=== PATIENT | female | born 1950 | race Caucasian/White ===

== ENCOUNTER 2019-04-26 11:06 | Outpatient (CLI) | payer MEDICARE, OTHER, SELFPAY ==
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
== END 2019-04-26 11:07 | disposition home or self-care (01) ==
LOC: RADOUTREAD 13:15
PROVIDERS: Family Provider Family Medicine; PCP Family Medicine; Visit Provider Internal Medicine
DX: Z76.89 Persons encountering health services in other specified circumstances (principal)

== ENCOUNTER → 2019-05-18 08:58 | Outpatient (BNVA) | payer MEDICARE, OTHER, SELFPAY | PROVIDERS: Family Provider Family Medicine; PCP Family Medicine; Visit Provider Specialist | DX: S92.912A Unspecified fracture of left toe(s), initial encounter for closed fracture (principal); X58.XXXA Exposure to other specified factors, initial encounter | CPT/HCPCS: 73660 ==

== ENCOUNTER 2020-11-02 12:21 | Outpatient (RCR) | payer MEDICARE, OTHER, SELFPAY | END 2020-11-20 23:59 | disposition home or self-care (01) | LOC: SPT 12:21 | PROVIDERS: PCP Family Medicine; Visit Provider Family Medicine | DX: S39.012D Strain of muscle, fascia and tendon of lower back, subsequent encounter (principal); X58.XXXD Exposure to other specified factors, subsequent encounter | CPT/HCPCS: 97032; 97110; 97161 ==

== ENCOUNTER 2020-12-14 15:55 | Outpatient (RCR) | payer MEDICARE, OTHER, SELFPAY | END 2020-12-20 23:59 | disposition home or self-care (01) | LOC: SPT 15:55 | PROVIDERS: PCP Family Medicine; Visit Provider Family Medicine | DX: S39.012D Strain of muscle, fascia and tendon of lower back, subsequent encounter (principal); X58.XXXD Exposure to other specified factors, subsequent encounter | CPT/HCPCS: 97110 ==

== ENCOUNTER 2020-12-21 06:00 | Outpatient (RCR) | payer MEDICARE, OTHER, SELFPAY | END 2021-01-20 23:59 | disposition home or self-care (01) | LOC: SPT 06:00 | PROVIDERS: PCP Family Medicine; Visit Provider Family Medicine | DX: S39.012D Strain of muscle, fascia and tendon of lower back, subsequent encounter (principal); X58.XXXD Exposure to other specified factors, subsequent encounter | CPT/HCPCS: 97110 ==

== ENCOUNTER → 2021-01-23 09:30 | Outpatient (BNVA) | payer MEDICARE, OTHER, SELFPAY | PROVIDERS: PCP Family Medicine; Referring Provider Internal Medicine Cardiovascular Disease; Visit Provider Anesthesiology Pain Medicine | DX: M47.816 Spondylosis without myelopathy or radiculopathy, lumbar region (principal); M51.36 Other intervertebral disc degeneration, lumbar region; M46.96 Unspecified inflammatory spondylopathy, lumbar region; M25.552 Pain in left hip; Z79.891 Long term (current) use of opiate analgesic; Z87.891 Personal history of nicotine dependence | CPT/HCPCS: 99204 ==

== ENCOUNTER 2021-10-08 12:25 | Outpatient (CLI) | payer MEDICARE, OTHER, SELFPAY ==
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
== END 2021-10-08 12:26 | disposition home or self-care (01) ==
PROVIDERS: PCP Family Medicine; Visit Provider Family Medicine
DX: Z78.0 Asymptomatic menopausal state (principal); M85.88 Other specified disorders of bone density and structure, other site
CPT/HCPCS: 77080

== ENCOUNTER → 2022-01-28 09:21 | Outpatient (BNVA) | payer MEDICARE, OTHER, SELFPAY | PROVIDERS: PCP Family Medicine; Visit Provider Anesthesiology Pain Medicine | DX: M47.816 Spondylosis without myelopathy or radiculopathy, lumbar region (principal); M51.36 Other intervertebral disc degeneration, lumbar region; M25.552 Pain in left hip; Z87.891 Personal history of nicotine dependence | CPT/HCPCS: 99214 ==

== ENCOUNTER → 2022-01-30 08:45 | Outpatient (BNVA) | payer MEDICARE, OTHER, SELFPAY | PROVIDERS: PCP Family Medicine; Visit Provider Podiatrist Foot & Ankle Surgery | DX: Q82.8 Other specified congenital malformations of skin (principal); M79.672 Pain in left foot; M79.671 Pain in right foot | CPT/HCPCS: 17110; 99204 ==

== ENCOUNTER → 2022-02-04 13:52 | Outpatient (BNVA) | payer MEDICARE, OTHER, SELFPAY | PROVIDERS: PCP Family Medicine; Visit Provider Anesthesiology Pain Medicine | DX: M54.16 Radiculopathy, lumbar region (principal); Z87.891 Personal history of nicotine dependence | CPT/HCPCS: 64483; 64484; J1100; J3490 ==

== ENCOUNTER → 2022-02-10 13:46 | Outpatient (BNVA) | payer MEDICARE, OTHER, SELFPAY | PROVIDERS: PCP Family Medicine; Visit Provider Podiatrist Foot & Ankle Surgery | DX: Q82.8 Other specified congenital malformations of skin (principal) | CPT/HCPCS: 17110; 99213 ==

== ENCOUNTER → 2022-02-25 13:58 | Outpatient (BNVA) | payer MEDICARE, OTHER, SELFPAY | PROVIDERS: PCP Family Medicine; Visit Provider Anesthesiology Pain Medicine | DX: M54.16 Radiculopathy, lumbar region (principal) | CPT/HCPCS: 64483; 64484 ==

== ENCOUNTER → 2022-03-31 10:53 | Outpatient (BNVA) | payer MEDICARE, OTHER, SELFPAY | PROVIDERS: PCP Family Medicine; Visit Provider Anesthesiology Pain Medicine | DX: M47.816 Spondylosis without myelopathy or radiculopathy, lumbar region (principal); M51.36 Other intervertebral disc degeneration, lumbar region | CPT/HCPCS: 99214 ==

== ENCOUNTER → 2022-06-30 09:17 | Outpatient (BNVA) | payer MEDICARE, OTHER, SELFPAY | PROVIDERS: PCP Family Medicine; Visit Provider Anesthesiology Pain Medicine | DX: M47.816 Spondylosis without myelopathy or radiculopathy, lumbar region (principal); M51.36 Other intervertebral disc degeneration, lumbar region; M25.552 Pain in left hip | CPT/HCPCS: 99213 ==

== ENCOUNTER → 2023-01-06 09:52 | Outpatient (BNVA) | payer MEDICARE, OTHER, SELFPAY | PROVIDERS: PCP Family Medicine; Visit Provider Anesthesiology Pain Medicine | DX: M47.816 Spondylosis without myelopathy or radiculopathy, lumbar region; M51.36 Other intervertebral disc degeneration, lumbar region | CPT/HCPCS: 99213 ==

== ENCOUNTER 2023-04-07 10:31 | Outpatient (RCR) | payer MEDICARE, OTHER, SELFPAY | END 2023-04-22 23:59 | disposition home or self-care (01) | LOC: SPT 10:31 | PROVIDERS: PCP Family Medicine; Visit Provider Student in an Organized Health Care Education/Training Program | DX: M17.11 Unilateral primary osteoarthritis, right knee (principal) | CPT/HCPCS: 97110; 97161 ==

== ENCOUNTER 2023-04-23 06:00 | Outpatient (RCR) | payer MEDICARE, OTHER, SELFPAY | END 2023-05-21 23:59 | disposition home or self-care (01) | LOC: SPT 06:00 | PROVIDERS: PCP Family Medicine; Visit Provider Student in an Organized Health Care Education/Training Program | DX: M17.11 Unilateral primary osteoarthritis, right knee (principal) | CPT/HCPCS: 97110 ==

== ENCOUNTER → 2023-07-08 09:58 | Outpatient (BNVA) | payer MEDICARE, OTHER, SELFPAY | PROVIDERS: PCP Family Medicine; Visit Provider Anesthesiology Pain Medicine | DX: M47.816 Spondylosis without myelopathy or radiculopathy, lumbar region; M51.36 Other intervertebral disc degeneration, lumbar region | CPT/HCPCS: 99214 ==

== ENCOUNTER → 2023-07-15 13:20 | Outpatient (BNVA) | payer MEDICARE, OTHER, SELFPAY | PROVIDERS: PCP Family Medicine; Visit Provider Anesthesiology Pain Medicine | DX: M54.16 Radiculopathy, lumbar region (principal) | CPT/HCPCS: 64483; 64484; J1100; J3490 ==

== ENCOUNTER → 2023-08-19 09:31 | Outpatient (BNVA) | payer MEDICARE, OTHER, SELFPAY | PROVIDERS: PCP Family Medicine; Visit Provider Anesthesiology Pain Medicine | DX: M47.816 Spondylosis without myelopathy or radiculopathy, lumbar region; M51.36 Other intervertebral disc degeneration, lumbar region; M25.552 Pain in left hip | CPT/HCPCS: 99214 ==

== ENCOUNTER → 2023-08-27 13:28 | Outpatient (BNVA) | payer MEDICARE, OTHER, SELFPAY | PROVIDERS: PCP Family Medicine; Visit Provider Anesthesiology Pain Medicine | DX: M54.16 Radiculopathy, lumbar region (principal) | CPT/HCPCS: 64483; 64484; J1100; J3490 ==

== ENCOUNTER → 2023-09-09 09:49 | Outpatient (BNVA) | payer MEDICARE, OTHER, SELFPAY | PROVIDERS: PCP Family Medicine; Visit Provider Anesthesiology Pain Medicine | DX: M47.816 Spondylosis without myelopathy or radiculopathy, lumbar region; M51.36 Other intervertebral disc degeneration, lumbar region; M25.552 Pain in left hip | CPT/HCPCS: 99214 ==

== ENCOUNTER → 2024-09-21 09:22 | Outpatient (BNVA) | payer MEDICARE, OTHER, SELFPAY | PROVIDERS: PCP Family Medicine; Visit Provider Podiatrist Foot & Ankle Surgery | DX: M79.671 Pain in right foot (principal); Q82.8 Other specified congenital malformations of skin; M20.11 Hallux valgus (acquired), right foot | CPT/HCPCS: 17110; 73630; 99214 ==

== ENCOUNTER 2024-10-29 22:52 | Inpatient (IN) | payer MEDICARE, OTHER, SELFPAY ==
[2024-10-29 22:57] VITALS: BP 109/70; PULSE 85; RESP 22; TEMP 36.6; O2SAT 85; BMI 36.9
--- OUTSIDE RECORDS SUMMARY | 2024-10-29 22:57 | XMS_ITS | Encounter Summary ---
Author Organization 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
--- OUTSIDE RECORDS SUMMARY | 2024-10-29 22:57 | XMS_ITS | Encounter Summary ---
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 Social History Tobacco Use Types Packs/Day Years Used Date Smoking Tobacco: Never Assessed Comments Unknown Sex and Gender Information Value Date Recorded Sex Assigned at Not on file 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
--- OUTSIDE RECORDS SUMMARY | 2024-10-29 22:57 | XMS_ITS | Encounter Summary ---
Author Organization [facility] Address [address] [place] [address] Care Team Providers Care Obstetrics Technician Name Role Phone Giovany Thompson MD Primary Care Provider +1- [phone] Reason for Referral * Outpatient Services (Routine) - Closed Specialty Diagnoses / Procedures Referred By Contac t Referred To Contact Diagnoses Encounter for screening mammogram for malignant neoplasm of breast Procedures MAMMO SCREEN BILAT W OR WO CAD Bib Edmondson MD [address] [address] Phone: tel: fax: Referral ID Status Reason Start Date Expiration Date Visits Re quested Visits Authorized [id number] Closed 03/25/2016 04/25/2017 1 1 OVER LOADER Encounter Details Date Type Department Care Team (Latest Contact Info) Description 03/25/2016 Ancillary Orders [facility] Pre-Registration [place] CALL TO MAKE APPOINTMENT ONLY [address] [place] [address] Bib Edmondson MD [address] [address] Encounter for screening mammogram for malignant neoplasm of breast Social History Tobacco Use Types Packs/Day Years Used Date Smoking Tobacco: Never Smokeless Tobacco: Never Alcohol Use Standard Drinks/Week Comments No 0 (1 standard drink = 0.6 oz pur e alcohol) Comments No Sex and Gender Information Value Date Recorded Sex Assigned at Not on file 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 Gender Identity Not on file Sexual Orientation Not on file Occupation Industry Job Start Date Job End Date Not on file Not on file Not on file Not on file documented as of this encounter Plan of Treatment Not on file documented as of this encounter Results * MAMMO SCREEN BILAT W OR WO CAD (12/26/2016 10:10 AM CDT) Anatomical Region Laterality Modality Breast Bilateral Mammography Narrative 12/26/2016 2:41 PM CDT Bilateral Mammogram Reason for Exam: Screening Comparison: Compared to: 12/26/2015 MAMMO DIGITAL SCREEN BILAT, 12/20/2014 MAMMO DIGITAL SCREEN BILAT, 10/28/2013 MAMMO DIGITAL SCREEN BILAT, 07/20/2012 MAMMO DIGITAL SCREEN BILAT, 07/14/2011 MAMMO DIGITAL SCREEN BILAT, 06/20/2010 MAMMO DIGITAL SCREEN BILAT, and 06/19/2009 MAMMO DIGITAL SCREEN BILAT Findings: Bilateral CC and MLO views were obtained. This examination was reviewed with the aid of a computer-aided detection system(CAD). Breast Composition: There are scattered areas of fibroglandular density. There are no suspicious masses, areas of architectural distortions, or microcalcifications to suggest malignancy. No significant new findings since the prior mammogram(s). us Bib Edmondson MD MAMMO ORDERABLES Final Resul t documented in this encounter Visit Diagnoses Diagnosis Encounter for screening mammogram for malignant neoplasm of breast Other screening mammogram Encounter for screening mammogram for malignant neoplasm of breast Other screening mammogram documented in this encounter Care Teams Obstetrics Technician Relationship Specialty Start Date End Date Giovany Thompson MD [address] [place] [id number] PCP - General 04/09/06 documented as of this encounter
--- OUTSIDE RECORDS SUMMARY | 2024-10-29 22:57 | XMS_ITS | Encounter Summary ---
Author Organization [facility] Address [address] [place] [address] Care Team Providers Care Rug Renovator Name Role Phone Giovany Thompson MD Primary Care Provider +1- [phone] Encounter Details Date Type Department Care Team (Latest Contact Info) Description 04/09/2006 Outpatient [facility] Breast Center [facility] [address] [place], [place] [address] Bib Edmondson MD [address] [facility] [address] [place] [address] Other Screening Mammogram (Primary Dx) Social History Tobacco Use Types Packs/Day Years Used Date Smoking Tobacco: Never Assessed Comments Unknown Sex and Gender Information Value Date Recorded Sex Assigned at Not on file 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
--- OUTSIDE RECORDS SUMMARY | 2024-10-29 22:57 | XMS_ITS | Encounter Summary ---
Author Organization [facility] Address [address] [place] [address] Care Team Providers Care Paving Crew Foreman Name Role Phone Giovany Thompson MD Primary Care Provider +1- [phone] Encounter Details Date Type Department Care Team (Latest Contact Info) Description 04/09/2006 Outpatient Historical [facility] OBGYN-[address] [address] Bib Edmondson MD [address] [address] Routine Medical Exam (Primary Dx); Routine Gynecological Examination Social History Tobacco Use Types Packs/Day Years Used Date Smoking Tobacco: Never Assessed Comments Unknown Sex and Gender Information Value Date Recorded Sex Assigned at Not on file 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
--- OUTSIDE RECORDS SUMMARY | 2024-10-29 22:57 | XMS_ITS | Encounter Summary ---
Author Organization [facility] Address [address] [place] [address] Care Team Providers Care Email Administrator Name Role Phone Giovany Thompson MD Primary Care Provider +1- [phone] Encounter Details Date Type Department Care Team (Latest Contact Info) Description 12/08/2003 Outpatient [facility] Breast Center [facility] [address] [place], [place] [address] Bib Edmondson MD [address] [facility] [address] [place] [address] SCREENING MAMM-MAILG NEOPL-OTHER (Primary Dx) Social History Tobacco Use Types Packs/Day Years Used Date Smoking Tobacco: Never Assessed Comments Unknown Sex and Gender Information Value Date Recorded Sex Assigned at Not on file 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
--- OUTSIDE RECORDS SUMMARY | 2024-10-29 22:57 | XMS_ITS | Encounter Summary ---
Author Organization [facility] Address [address] [place] [address] Care Team Providers Care Catalyst Operator Chief Name Role Phone Giovany Thompson MD Primary Care Provider +1- [phone] Encounter Details Date Type Department Care Team (Latest Contact Info) Description 06/01/2002 Outpatient [facility] D[facility]- [facility] [address] [place] [id number] Chilango Saenz MD NO ADDRESS ON FILE ROSACEA (Primary Dx) Social History Tobacco Use Types Packs/Day Years Used Date Smoking Tobacco: Never Assessed Comments Unknown Sex and Gender Information Value Date Recorded Sex Assigned at Not on file 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
--- OUTSIDE RECORDS SUMMARY | 2024-10-29 22:57 | XMS_ITS | Encounter Summary ---
Author Organization [facility] Address [address] [place] [address] Care Team Providers Care Overlock Elastic Attacher Name Role Phone Giovany Thompson MD Primary Care Provider +1- [phone] Encounter Details Date Type Department Care Team (Latest Contact Info) Description 11/14/1998 Outpatient Historical [facility] [address] [facility] [address] [place] [address] Deborah Falk MD NO ADDRESS ON FILE Nonspecific abnormal findings on radiological or other examinations of the breast (Primary Dx) Social History Tobacco Use Types Packs/Day Years Used Date Smoking Tobacco: Never Assessed Comments Unknown Sex and Gender Information Value Date Recorded Sex Assigned at Not on file Legal 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
--- OUTSIDE RECORDS SUMMARY | 2024-10-29 22:57 | XMS_ITS | Clinical Summary ---
Author Organization [facility] Address [address] [place] [address] Phone Care Team Providers Care Documentation Lead Name Role Phone Giovany Thompson MD Primary Care Provider +1- [phone] Allergies Active Allergy Reactions Criticality Noted Date Comments Aspirin Other (See Comments) 03/17/2023 Tachycardia Unclassified Drug Rash Low 06/07/2020 Surgical mike. , , Had some itching and swelling surrounding surgical mike after surgery. Surgical mike. Had some itching and swelling surrounding surgical mike after surgery. Medications omeprazole (PriLOSEC) 20 mg Capsule, Delayed Release(E.C.) Take 20 mg by mouth daily. 9 Active sertraline (ZOLOFT) 50 mg tablet Take 50 mg by mouth daily. 1 Active bismuth subsalicylate (PEPTO-BISMOL) 262 mg Tablet, Chewable Take 262 mg by mouth every 6 hours as needed for Diarrhea/Loos e Stools. 1 Active cephALEXin (KEFLEX) 500 mg capsuleIndications :Status post total replacement of left hip TAKE ALL FOUR PILLS ONE HOUR PRIOR TO PROCEDURE 4 Capsule 1 Active atorvastatin (LIPITOR) 40 mg tablet Take 1 Tablet by mouth daily. Active tiZANidine (ZANAFLEX) 4 mg Tablet Take 4 mg by mouth 2 times daily as needed for Spasm. 3 Active levothyroxine 112 mcg tablet Take 112 mcg by mouth daily. Active loratadine (CLARITIN) 10 mg tablet Take 10 mg by mouth daily. Active polyethylene glycol 3350 (Miralax) 17 gram/dose Powder Take 1 Scoop (17 Grams) by mouth daily. Dissolve in 8 ounces of fluid and drink entire liquid 510 Gram 04/04/2023 9:29 AM MAINTENANCE MECHANIC HELPER 4 Active traMADoL (ULTRAM) 50 mg tabletIndications: Status post total right knee replacement Take 1 Tablet (50 mg) by mouth every 6 hours as needed for Pain. 28 Tablet 04/04/2023 9:29 AM MAINTENANCE MECHANIC HELPER 4 Active HYDROcodone-acetam inophen (NORCO) 5-325 mg tabletIndications: Status post total right knee replacement Take 1 Tablet by mouth every 4 hours as needed for Pain, Moderate. Max Daily Amount: 6 Tablets 42 Tablet 04/04/2023 9:29 AM MAINTENANCE MECHANIC HELPER 4 Active ondansetron (Zofran) 4 mg Tablet Take 1 Tablet (4 mg) by mouth every 8 hours as needed for Nausea/Emesis . 21 Tablet 1 04/04/2023 9:29 AM MAINTENANCE MECHANIC HELPER 4 Active Active Problems Problem Noted Date Diagnosed Date Status post total knee replacement, right 2023 Preoperative general physical examination 2022 History of tobacco use 03/17/2023 Restless legs 11/11/2022 Hypertensive disorder 05/12/2022 Overview (12/24/2022): HYPERTENSION, BENIGN; Recorded 05/13/2022 10:33AM by Loyda Bauer RN, Office Visit; Promoted; acuity set as *; Herber type IIa hyperlipoproteinemia 2022 Overview (12/24/2022): HYPERCHOLESTEROLEMIA; Recorded 05/13/2022 10:33AM by Loyda Bauer RN, Office Visit; Promoted; acuity set as *; Asthma 05/12/2022 Overview (12/24/2022): Asthma; 05/13/2022 10:33AM by Loyda Bauer RN, Office Visit; Promoted; acuity set as *; ASTHMA; Recorded 05/13/2022 10:33AM by Loyda Bauer RN, Office Visit; Promoted; acuity set as *; Irritable bowel syndrome 05/12/2022 Overview (12/24/2022): IRRITABLE BOWEL SYNDROME; Recorded 05/13/2022 10:33AM by Loyda Bauer RN, Office Visit; Promoted; acuity set as *; Status post total replacement of left hip 2020 Gastroesophageal reflux disease without esophagi tis 06/07/2020 Chronic rhinitis 06/07/2020 Other specified hypothyroidism 06/07/2020 Primary localized osteoarthrosis of left hip Major depression 06/07/2020 Severe obesity (BMI 35.0-39.9) with comorbidity 06/07/2020 Senile osteoporosis 06/20/2010 Overview (07/19/2020): On Fosamax Pure hypercholesterolemia 06/20/2010 Resolved Problems Problem Noted Date Diagnosed Date Resolved Date Status post total right knee replacement 04/03/2023 04/30/2023 Primary osteoarthritis of right knee 12/24/2022 04/30/2023 Preop general physical exam 06/07/2020 06/20/2020 Preoperative testing 021 Primary osteoarthritis of hip 05/21/2023 Encounters Date Type Department Care Team Description 10/26/2024 External Device Data STL ABSTRACTION Provider, Abstract 10/05/2024 External Device Data STL ABSTRACTION Provider, Abstract 10/04/2024 External Device Data ST[facility] ABSTRACTION Provider, Abstract 09/09/2024 Transcribe Orders [facility] Centralized Scheduling [place] CALL TO MAKE APPOINTMENT ONLY [address] [place] [phone] Esther Lawson APRN-BC Abnormal mammography (Primary Dx) 08/31/2024 9:51 AM CDT - 08/31/2024 11:59 PM CDT Hospital Encounter [facility] Breast [place] [address] [facility] [address] [place] [id number] Esther Lawson APRN-BC Discharge Disposition: Home or Self Care 08/23/2024 External Device Data STL ABSTRACTION Provider, Abstract from Last 3 Months Immunizations Immunization Administration Dates Next Due (PNEUMOVAX 23)(50 YRS UP) PN EUMOCOCCAL POLYSACCHARIDE (PPV23) 0.5 ML, IM 12/21/2014 (TDVAX)(7 YRS UP) TETANUS AN D DIPHTHERIA TOXOIDS, ADSORBED (2 LF OF TETANUS TOXOID AND 2 LF OF DIPHTHERIA TOXOID), 0.5ML (PF), IM 02/25/2005 Hepatitis A Vaccine 09/05/2005,03/28/2005,2004 Hepatitis B Vaccine 09/05/2005,03/28/2005 Influenza Seasonal Unspecifi ed Formulation IM 02/10/2022,12/21/2014,02/20/2014,02/25 Family History Medical History Relation Name Comments Colon Cancer Brother 1 Other Brother 1 No Known Problems Brother 2 Other Brother 3 No Known Problems Daughter Other Father Colon Cancer Mother Lung Cancer Mother Diabetes Sister Respiratory Disease Sister No Known Problems Son Breast Cancer Neg Hx negative respo nse- see media tab Cancer - Other Neg Hx Melanoma Neg Hx Ovarian Cancer Neg Hx Pancreatic Cancer Neg Hx Uterine or Endometrial Cance r, Not Including Cervical Neg Hx Relation Name Status Comments Brother 1 Alive Brother 2 Alive Brother 3 Alive Daughter Alive Father Mother Sister Son Alive Social History Tobacco Use Types Packs/Day Years Used Date Smoking Tobacco: Former Cigarettes 0.3 7 0 03/23/1969 - 03/23/1976 Smokeless Tobacco: Never Tobacco Cessation:Counseling Given: Not Answered Alcohol Use Standard Drinks/Week Comments No 0 (1 standard drink = 0.6 oz pur e alcohol) Comments No Sex and Gender Information Value Date Recorded Sex Assigned at Not on file Legal Sex Female 4:37 PM MAINTENANCE MECHANIC HELPER Gender Identity Not on file Sexual Orientation Not on file Last Filed Vital Signs Vital Sign Reading Time Taken Comments Blood Pressure 126/80 04/07/2024 11:03 AM MAINTENANCE MECHANIC HELPER Pulse 82 04/04/2023 7:29 AM MAINTENANCE MECHANIC HELPER Temperature 36.7 C (98 F) 04/04/2023 7:29 AM MAINTENANCE MECHANIC HELPER Respiratory Rate 16 04/04/2023 7:29 AM MAINTENANCE MECHANIC HELPER Oxygen Saturation 96% 04/04/2023 7:29 AM MAINTENANCE MECHANIC HELPER Inhaled Oxygen Concentration - - Weight 118.4 kg (261 lb) 04/07/2024 11:03 AM MAINTENANCE MECHANIC HELPER Height 172.7 cm (5' 8 ) 04/07/2024 11:03 AM MAINTENANCE MECHANIC HELPER Body Mass Index 39.68 04/07/2024 11:03 AM MAINTENANCE MECHANIC HELPER Plan of Treatment Upcoming Encounters Date Type Department Care Team (Late st Contact Info) Description 08/28/2025 12:30 PM CDT Appointment [facility] [address] [facility] [address] [place] [address] Esther Lawson, HEALTH PROGRAM DIRECTOR-BC [address] [facility] [address] [place] [address] Health Maintenance Due Date Last Done Comments COLORECTAL SCREENING 11/27/1996 Colorectal Cancer Screening 11/27/1996 FIT-DNA Q 3 years 11/27/1996 FIT/FOBT Q 1 year 11/27/1996 Flex Sig/CT Colonography Q 5 years 11/27/1996 RSV VACCINE (60+ or ) (1 - Risk 60-74 years 1-dose series) 2011 COVID-19 Vaccine (3 - 2023-2 5 season) 2023 05/16/2020, 04/18/2020 INFLUENZA VACCINE (#1) 2024 4, 03/03/2022, 02/10/2022, Additional history exists BREAST CANCER SCREENING 08/31/2025 09/01/19 25, 03/02/2024, 08/31/2023, Additional history exists OSTEOPOROSIS SCREENING 08/09/2028 4, 08/17/2012, 08/17/2012, Additional history exists DTAP/TDAP/TD VACCINES (2 - T d or Tdap) 06/16/2032 06/16/2022, 02/25/2005 PNEUMOCOCCAL VACCINE 50+ YEARS Completed 03/19/2022 , 12/21/2014 ZOSTER VACCINE Completed 06/16/2022, 04/14/2022 Medical Devices Implanted Type Area Senior Svp Device Identifier Shelf Expiration Date Model / Serial / Lot Cup Pinn Sctr Grptn 52mm 1217-32-052 - [id number] Implanted:Qty: 1 on 06/21/2020 by Emre Lawson MD Hip Left: Hip [employer] [id number] 02/19/2030 1217-32-052 / / [id number] Head Fem Art/Xavier Cer Sz36 1365-36-320 - [id number] Implanted:Qty: 1 on 06/21/2020 by Emre Lawson MD Hip Left: Hip [employer] DE[employer] MARY [id number] 03/22/2025 [id number] / / [id number] Hole Eliminator [place] 1246-03-000 - [id number] Implanted:Qty: 1 on 06/21/2020 by Emre Lawson MD Hip Left: Hip [employer] [id number] 01/20/2030 1246-03-000 / / [id number] Liner Pinn Altrx Poly 1221-36-052 - [id number] Implanted:Qty: 1 on 06/21/2020 by Emre Lawson MD Hip Left: Hip [employer] [id number] 04/22/2025 [id number] / / [id number] Stem Fem Actis Colr Std Sz4 1010-11-040 - [id number] Implanted:Qty: 1 on 06/21/2020 by Emre Lawson MD Hip Left: Hip [employer] [id number] 03/22/2030 1010-040 / / [id number] Bsplt Tib Attune Fix Brng Sz 6 Implanted:Qty: 1 on 04/03/2023 by Emre Lawson MD at [facility] Right: Knee [id number] 12/20/2032 [id number] / / [id number] Comp Fem Attune Rt Trung Sz6 Implanted:Qty: 1 on 04/03/2023 by Emre Lawson MD at [facility] Right: Knee [id number] 09/19/2032 [id number] / / [id number] Tib Insert Fixed Bearing Sz6 8mm Implanted:Qty: 1 on 04/03/2023 by Emre Lawson MD at [facility] Right: Knee 08/20/2030 [id number] / / [id number] Procedures Procedure Name Priority Date/Time Associated Diagnosis Comments MAMMO 3D LUIS M DIAGNOSTIC BILAT W OR WO CAD Routine 08/31/2024 12:09 PM CDT Abnormal mammogram XR DEXA BONE DENSITY AXIAL 1 OR MORE SITES Routine 08/10/2023 12:57 PM CDT Screening for osteoporosis Osteopenia after menopause from Last 3 Months or Most Recently Relevant to Health Maintenance Results * (ABNORMAL) MAMMO 3D LUIS M DIAGNOSTIC BILAT W OR WO CAD (08/31/2024 12:09 PM CDT) Anatomical Region Laterality Modality Breast Bilateral Mammography 08/31/2024 10:1 6 AM CDT Impressions 08/31/2024 10:44 AM CDT IMPRESSION: Stable probably benign right breast calcifications. Recommend a follow-up bilateral diagnostic mammogram in one year. BI-RADS ASSESSMENT: 3 - Probably Benign RECOMMENDATION: Interval follow-up is recommended. The patient was given verbal and written results and recommendations by the technologist. Narrative 08/31/2024 10:44 AM CDT EXAM: MAMMO 3D LUIS M DIAGNOSTIC BILAT W OR WO CAD INDICATION: The patient presents for follow-up of probably benign right breast calcifications. These were originally detected on screening mammogram dated 08/20/2023. She has no new breast complaints. COMPARISON: Mammograms dating back to 2021. BREAST COMPOSITION: There are scattered areas of fibroglandular density. DIAGNOSTIC RIGHT MAMMOGRAM The 3 mm grouping of calcifications in the right breast at 2:00, 5 cm from the nipple is stable. There is no associated mass or architectural distortion. DIAGNOSTIC LEFT MAMMOGRAM No suspicious masses, calcifications or areas of distortion are seen. Esther Lawson HEALTH PROGRAM DIRECTOR-BC MAMMO ORDERABLES Final Result * (ABNORMAL) XR DEXA BONE DENSITY AXIAL 1 OR MORE SITES (08/10/2023 12:57 PM CDT) T-SCORE HIP (RIGHT) -1.30(A) -1.0 - 1.0 INTERFACE SYSTEM T-SCORE SPINE -1.70(A) -1.0 - 1.0 INTER FACE SYSTEM Anatomical Region Laterality Modality Digital Radiogra phy, Mammography 08/10/2023 12:5 8 PM CDT Impressions 08/11/2023 3:31 PM CDT IMPRESSION: Abnormal examination Bone density lies in the osteopenic range in the right proximal femur and osteoporotic range in a single lumbar level new the average of the patient's age-matched control without important change by comparison. Prior Actonel therapy is noted. NOF guidelines recommend consideration of FDA-approved medical therapies in patients with FRAX determined 10-year probabilities of hip/major osteoporosis-related fractures equal or greater than 3%/20% respectively. FRAX determined 10-year hip and major osteoporotic fracture risks based on the right femoral neck bone density are 1.7% and 10% respectively. Narrative 08/11/2023 3:31 PM CDT DEXA Evaluation of the Lumbar Spine and Right Proximal Femur Reason for Consultation: Osteoporosis screening. Evaluation of bone mineral density. The following absorptiometry data were obtained. The quality of this examination is acceptable with regards to count density, processed images, data display and lack of important artifacts (including but not limited to motion and attenuation artifacts). Serial examination number 5 with comparison to the prior exam of 08/09/2022. Lumbar spine images demonstrate scoliotic and degenerative changes with spurious elevation of bone density at lower levels. L1/L2 (08/10/2023 and 08/09/2012) BMD (g/cm2): 0.761/0.743 and 0.850/0.901 Adult T-score: -2.1/-2.6 and -2.3/-2.5 Adult Z-score: -0.1/-0.4 and -2.3/-2.4 Right femoral neck BMD (g/cm2): 0.658 Adult T-score: -1.7 Adult Z-score: 0.2 Right total hip BMD (g/cm2): 0.782 Adult T-score: -1.3 Adult Z-score: 0.3 Procedure Note Emre Fisher MD - 08/11/2023 DEXA Evaluation of the Lumbar Spine and Right Proximal Femur Reason for Consultation: Osteoporosis screening. Evaluation of bone mineral density. The following absorptiometry data were obtained. The quality of this examination is acceptable with regards to count density, processed images, data display and lack of important artifacts (including but not limited to motion and attenuation artifacts). Serial examination number 5 with comparison to the prior exam of 08/09/2022. Lumbar spine images demonstrate scoliotic and degenerative changes with spurious elevation of bone density at lower levels. L1/L2 (08/10/2023 and 08/09/2012) BMD (g/cm2): 0.761/0.743 and 0.850/0.901 Adult T-score: -2.1/-2.6 and -2.3/-2.5 Adult Z-score: -0.1/-0.4 and -2.3/-2.4 Right femoral neck BMD (g/cm2): 0.658 Adult T-score: -1.7 Adult Z-score: 0.2 Right total hip BMD (g/cm2): 0.782 Adult T-score: -1.3 Adult Z-score: 0.3 IMPRESSION: Abnormal examination Bone density lies in the osteopenic range in the right proximal femur and osteoporotic range in a single lumbar level new the average of the patient's age-matched control without important change by comparison. Prior Actonel therapy is noted. NOF guidelines recommend consideration of FDA-approved medical therapies in patients with FRAX determined 10-year probabilities of hip/major osteoporosis-related fractures equal or greater than 3%/20% respectively. FRAX determined 10-year hip and major osteoporotic fracture risks based on the right femoral neck bone density are 1.7% and 10% respectively. Esther Lawson [facility]- DIAGNOSTIC IMAGING ORD ERABLES Final Result from Last 3 Months or Most Recently Relevant to Health Maintenance Insurance MEDICARE PART A AND B [employer] SUPP DEQUAN JOHNSON [id number] * Guarantor: BREANNE SIFUENTES Ender Account Type Relation to Patient Date of Phone Billing Address Personal/Family [address] [address] [employer] Medicare Part D RX [employer] (INTERNAL) [facility] Internal Plans Advance Directives For more information, please contact: [phone] * Full Code (Latest Code Status on File) Date Activated Date Inactivated Comments 04/03/2023 6:38 AM 04/04/2023 1:29 PM Care Teams Documentation Lead Relationship Specialty Start Date End Date Giovany Thompson MD [address] [place] [phone] PCP - General 04/09/06
--- OUTSIDE RECORDS SUMMARY | 2024-10-29 22:57 | XMS_ITS | Encounter Summary ---
Author Organization [facility] Address [address] [place] [address] Care Team Providers Care Supervisor Pressing Department Name Role Phone Giovany Thompson MD Primary Care Provider +1- [phone] Encounter Details Date Type Department Care Team (Latest Contact Info) Description 10/10/2004 Outpatient Historical HIS CANCELLED ADMISSION Matt De MD [address] [place] [address] ADMINISTRTVE ENCOUNT NOS (Primary Dx) Social History Tobacco Use Types Packs/Day Years Used Date Smoking Tobacco: Never Assessed Comments Unknown Sex and Gender Information Value Date Recorded Sex Assigned at Not on file Legal Sex Female 4:46 AM CRUSHED STONE 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
--- OUTSIDE RECORDS SUMMARY | 2024-10-29 22:57 | XMS_ITS | Encounter Summary ---
Author Organization [facility] Address [address] [place] [address] Care Team Providers Care Environmental Field Technician Name Role Phone Giovany Thompson MD Primary Care Provider +1- [phone] Encounter Details Date Type Department Care Team (Late st Contact Info) Description 09/12/1997 Outpatient Historical [facility] [address] [facility] [address] [place] [address] Sally Santos MD NO ADDRESS ON FILE Other sign and symptom in breast (Primary Dx) Social History Tobacco Use Types Packs/Day Years Used Date Smoking Tobacco: Never Assessed Comments Unknown Sex and Gender Information Value Date Recorded Sex Assigned at Not on file Legal Sex Female 4:46 AM 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
--- OUTSIDE RECORDS SUMMARY | 2024-10-29 22:57 | XMS_ITS | Encounter Summary ---
Author Organization [facility] Address [address] [place] [address] Care Team Providers Care Quantitative Software Engineer Name Role Phone Giovany Thompson MD Primary Care Provider +1- [phone] Reason for Referral * Outpatient Services (Routine) - Closed Specialty Diagnoses / Procedures Referred By Contac t Referred To Contact Diagnoses Visit for screening mammogram Procedures MAMMO DIGITAL SCREEN BILAT Bib Edmondson MD [address] [address] Phone: tel: fax: Referral ID Status Reason Start Date Expiration Date Visits Re quested Visits Authorized [id number] Closed 11/14/2015 12/14/2016 1 1 Encounter Details Date Type Department Care Team (Latest Contact Info) Description 11/14/2015 Ancillary Orders [facility] Pre-Registration [place] CALL TO MAKE APPOINTMENT ONLY [address] [place] [address] Bib Edmondson MD [address] [address] Visit for screening mammogram (Primary Dx) Social History Tobacco Use Types Packs/Day Years Used Date Smoking Tobacco: Never Smokeless Tobacco: Never Alcohol Use Standard Drinks/Week Comments No 0 (1 standard drink = 0.6 oz pur e alcohol) Comments No Sex and Gender Information Value Date Recorded Sex Assigned at Not on file Legal Sex Female 4:46 AM FILM WRITER Gender Identity Not on file Sexual Orientation Not on file Occupation Industry Job Start Date Job End Date Not on file Not on file Not on file Not on file documented as of this encounter Plan of Treatment Not on file documented as of this encounter Results * MAMMO DIGITAL SCREEN BILAT (12/26/2015 9:38 AM CDT) Anatomical Region Laterality Modality Breast Bilateral Mammography Narrative 12/29/2015 9:59 AM CDT Bilateral Mammogram Reason for Exam: Screening Comparison: Compared to: 10/28/2013 MAMMO DIGITAL SCREEN BILAT, 07/20/2012 MAMMO DIGITAL SCREEN BILAT Findings: Bilateral CC and MLO views were obtained. This examination was reviewed with the aid of a computer-aided detection system(CAD). The breast tissue density is average. No significant new findings since the prior mammogram(s). us Bib Edmondson MD MAMMO ORDERABLES Final Resul t documented in this encounter Visit Diagnoses Diagnosis Visit for screening mammogram- Primary Other screening mammogram Visit for screening mammogram Other screening mammogram documented in this encounter Care Teams Quantitative Software Engineer Relationship Specialty Start Date End Date Giovany Thompson MD [address] [place] [phone] PCP - General 04/09/06 documented as of this encounter
--- OUTSIDE RECORDS SUMMARY | 2024-10-29 22:57 | XMS_ITS | Encounter Summary ---
Author Organization [facility] Address [address] [place] [address] Care Team Providers Care Reject Opener Name Role Phone Giovany Thompson MD Primary Care Provider +1- [phone] Reason for Referral * Radiology Services (Routine) - Closed Specialty Diagnoses / Procedures Referred By Contac t Referred To Contact Radiology Diagnoses Visit for screening mammogram Procedures MAMMO SCRN BILAT 3D LUIS M W OR WO CAD CHG SCREENING MAMMOGRAPHY BI 2-VIEW BREAST INC CAD CHG SCREENING DIGITAL BREAST TOMOSYNTHESIS BI Esther Lawson APRN-BC [address] [facility] [address] [place] [address] Phone: tel: fax: [facility] [address] [facility] [address] [place] [address] Phone: tel: fax: Referral ID Status Reason Start Date Expiration Date V isits Requested Visits Authorized [id number] Closed F CTS to Schedule 03/19/2020 04/19/2021 1 1 HICS MANAGER Encounter Details Date Type Department Care Team (Latest Contact Info) Description 03/19/2020 Ancillary Orders [facility] Pre-Registration Irene CALL TO MAKE APPOINTMENT ONLY [address] [place] [address] Esther Lawson APRN-BC [address] [phone] Visit for screening mammogram Social History Tobacco Use Types Packs/Day Years Used Date Smoking Tobacco: Never Smokeless Tobacco: Never Alcohol Use Standard Drinks/Week Comments No 0 (1 standard drink = 0.6 oz pur e alcohol) Comments No Sex and Gender Information Value Date Recorded Sex Assigned at Not on file Legal Sex Female 4:46 AM GRAPHICS MANAGER Gender Identity Not on file Sexual Orientation Not on file Occupation Industry Job Start Date Job End Date Not on file Not on file Not on file Not on file COVID-19 Exposure Response Date Recorded In the last month, have you been in contact with someone who was confirmed or suspected to have Coronavirus / COVID-19? No / Unsure 03/19/2020 1:10 PM GRAPHICS MANAGER documented as of this encounter Plan of Treatment Not on file documented as of this encounter Results * MAMMO SCRN BILAT 3D LUIS M W OR WO CAD (05/16/2020 10:39 AM GRAPHICS MANAGER) Anatomical Region Laterality Modality Breast Bilateral Mammography Narrative 05/17/2020 7:13 PM GRAPHICS MANAGER Bilateral Digital Mammogram with CAD and 3D Tomography Reason for Exam: Screening Comparison: Compared to: 02/22/2019 MAMMO SCRN BILAT 3D LUIS M W OR WO CAD, 02/20/2018 MAMMO SCRN BILAT 3D LUIS M W OR WO CAD, 12/26/2016 MAMMO SCREEN BILAT W OR WO CAD, 12/26/2015 MAMMO DIGITAL SCREEN BILAT, and 12/20/2014 MAMMO DIGITAL SCREEN BILAT Technique: 3D MLO and CC digital tomosynthesis images were acquired and synthesized 2D images (C view) were generated. This digital mammogram was also analyzed by the Computer Aided Detection System CAD). Breast Composition: There are scattered areas of fibroglandular density. There are no suspicious masses, areas of architectural distortions, or microcalcifications to suggest malignancy. No significant new findings since the prior mammogram(s). Esther Lawson CODIFIER-BC MAMMO ORDERABLES Final Result documented in this encounter Visit Diagnoses Diagnosis Visit for screening mammogram Other screening mammogram Visit for screening mammogram Other screening mammogram documented in this encounter Care Teams Reject Opener Relationship Specialty Start Date End Date Giovany Thompson MD [address] [phone] PCP - General 04/09/06 documented as of this encounter
--- OUTSIDE RECORDS SUMMARY | 2024-10-29 22:57 | XMS_ITS | Encounter Summary ---
Author Organization [facility] Address [address] [place] [address] Care Team Providers Care [facility] Name Role Phone Giovany Thompson MD Primary Care Provider +1- [phone] Encounter Details Date Type Department Care Team (Latest Contact Info) Description 12/06/2002 Outpatient Historical [facility] [address] [facility] [address] [place] [address] Deborah Falk MD NO ADDRESS ON FILE SCREENING MAMM-MAILG NEOPL-OTHER (Primary Dx) Social History Tobacco Use Types Packs/Day Years Used Date Smoking Tobacco: Never Assessed Comments Unknown Sex and Gender Information Value Date Recorded Sex Assigned at Not on file Legal Sex Female 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
--- OUTSIDE RECORDS SUMMARY | 2024-10-29 22:57 | XMS_ITS | Encounter Summary ---
Author Organization [facility] Address [address] [place] [address] Care Team Providers Care Health Science Instructor Name Role Phone Giovany Thompson MD Primary Care Provider +1- [phone] Encounter Details Date Type Department Care Team (Late st Contact Info) Description 09/05/1997 Outpatient Historical [facility] [address] [facility] [address] [place] [address] Sally Santos MD NO ADDRESS ON FILE Other screening mammogram (Primary Dx) Social History Tobacco Use Types Packs/Day Years Used Date Smoking Tobacco: Never Assessed Comments Unknown Sex and Gender Information Value Date Recorded Sex Assigned at Not on file 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
--- OUTSIDE RECORDS SUMMARY | 2024-10-29 22:57 | XMS_ITS | Clinical Summary ---
Author Organization [facility] Address [address] [place] [address] Phone Care Team Providers Care Cosmetic Account Coordinator Name Role Phone Giovany Thompson MD Primary Care Provider +1- [phone] Allergies Active Allergy Reactions Criticality Noted Date Comments Unclassified Drug Rash Low 06/07/2020 Surgical mike. Had some itching and swelling surrounding surgical mike after surgery. Medications SIMVASTATIN ORAL Take 40 mg by mouth daily in the morning. Active omeprazole (PriLOSEC) 20 mg Capsule, Delayed Release(E.C.) Take 20 mg by mouth daily. 9 Active sertraline (ZOLOFT) 50 mg tablet Take 50 mg by mouth daily. Active levothyroxine 100 mcg tablet Take 100 mcg by mouth daily in the morning. Active cetirizine (ZyrTEC) 10 mg tablet Take 10 mg by mouth daily. Active bismuth subsalicylate (PEPTO-BISMOL) 262 mg Tablet, Chewable Take 262 mg by mouth every 6 hours as needed for Diarrhea/Loos e Stools. Active polyethylene glycol 3350 (Miralax) 17 gram/dose Powder Take 1 Scoop (17 Grams) by mouth daily. Dissolve in 8 ounces of fluid and drink entire liquid 510 Gram 06/22/2020 2:43 PM CDT Active ondansetron (ZOFRAN ODT) 4 mg Tablet, Rapid Dissolve Place 1 Tablet (4 mg) under tongue every 6 hours as needed for Nausea/Emesis . Dissolve tablet on top of tongue, then swallow with saliva. 30 Tablet 1 Active HYDROcodone-acetam inophen (NORCO) 5-325 mg tabletIndications: Status post total replacement of right hip Take 1 Tablet by mouth every 6 hours as needed for Pain, Moderate. Max Daily Amount: 4 Tablets 42 Tablet 1 Active cyclobenzaprine (FLEXERIL) 10 mg tablet Take 1 Tablet (10 mg) by mouth 3 times daily as needed for Spasm. 30 Tablet 1 1 Active Active Problems Problem Noted Date Diagnosed Date Status post total replacement of left hip 2020 Major depression 06/07/2020 Gastroesophageal reflux disease without esophagi tis 06/07/2020 Chronic rhinitis 06/07/2020 Severe obesity (BMI 35.0-39.9) with comorbidity 06/07/2020 Other specified hypothyroidism 06/07/2020 Primary localized osteoarthrosis of left hip Senile osteoporosis 06/20/2010 Overview (06/20/2010): On Fosamax Pure hypercholesterolemia 06/20/2010 Primary osteoarthritis of hip Resolved Problems Problem Noted Date Diagnosed Date Resolved Date Preop general physical exam 06/07/2020 06/20/2020 Preoperative testing 021 Immunizations Immunization Administration Dates Next Due (TDVAX)(7 YRS UP) TETANUS AN D DIPHTHERIA TOXOIDS, ADSORBED (2 LF OF TETANUS TOXOID AND 2 LF OF DIPHTHERIA TOXOID), 0.5ML (PF), IM 02/25/2005 Hepatitis A Vaccine 09/05/2005,03/28/2005,2004 Hepatitis B Vaccine 09/05/2005,03/28/2005 Influenza Seasonal Unspecifi ed Formulation IM 02/25/2005 Family History Medical History Relation Name Comments Other Brother 1 Other Brother 2 No Known Problems Brother 3 No Known Problems Daughter Other Father Colon Cancer Mother Lung Cancer Mother Diabetes Sister Respiratory Disease Sister No Known Problems Son Breast Cancer Neg Hx negative respo nse- see media tab Ovarian Cancer Neg Hx Relation Name Status Comments Brother 1 Alive Brother 2 Alive Brother 3 Alive Daughter Alive Father Mother Sister Son Alive Social History Tobacco Use Types Packs/Day Years Used Date Smoking Tobacco: Former Cigarettes 0.3 5 0 03/23/1971 - 03/23/1976 Smokeless Tobacco: Never Alcohol Use Standard Drinks/Week Comments No 0 (1 standard drink = 0.6 oz pur e alcohol) Comments No Sex and Gender Information Value Date Recorded Sex Assigned at Not on file Legal 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 Gender Identity Not on file Sexual Orientation Not on file Occupation Industry Job Start Date Job End Date Not on file Not on file Not on file Not on file Last Filed Vital Signs Vital Sign Reading Time Taken Comments Blood Pressure 135/88 07/16/2020 11:03 AM CDT Pulse 91 07/16/2020 11:03 AM CDT Temperature 37.3 C (99.1 F) 06/22/2020 11:32 AM CDT Respiratory Rate 16 06/22/2020 11:32 AM CDT Oxygen Saturation 94% 06/22/2020 11:32 AM CDT Inhaled Oxygen Concentration - - Weight 122 kg (269 lb) 07/16/2020 11:03 AM CDT Height 175.3 cm (5' 9 ) 07/16/2020 11:03 AM CDT Body Mass Index 39.72 07/16/2020 11:03 AM CDT Plan of Treatment Health Maintenance Due Date Last Done Comments FIT-DNA Q 3 years 11/27/1996 Flex Sig/CT Colonography Q 5 years 11/27/1996 PNEUMOCOCCAL VACCINE 50+ YEA RS (1 of 1 - PCV) 11/27/2001 ZOSTER VACCINE (1 of 2) 11/27/2001 DTAP/TDAP/TD VACCINES (1 - Tdap) 02/26/2005 02/26/20 05 FIT/FOBT Q 1 year 06/19/2010 06/19/2009 RSV VACCINE (60+ or ) (1 - Risk 60-74 years 1-dose series) 2011 OSTEOPOROSIS SCREENING 08/17/2017 3, 07/16/2009, 04/09/2006 COLORECTAL SCREENING 06/20/2020 06/20/2010, 02/21/20 10 Colorectal Cancer Screening 06/20/2020 BREAST CANCER SCREENING 05/16/2021 05/16/19 21, 02/23/2019, 02/23/2019, Additional history exists INFLUENZA VACCINE (#1) 2024 02/25/2005 Medical Devices Implanted Type Area Academic Guidance Specialist Device Identifier Shelf Expiration Date Model / Serial / Lot Hole Eliminator [place] 1246-03-000 - [id number] Implanted:Qty: 1 on 06/21/2020 by Emre Lawson MD at [facility] Hip Left: Hip [employer] [id number] 01/20/2030 1246-03-000 / / [id number] Cup Pinn Sctr Grptn 52mm 1217-32-052 - [id number] Implanted:Qty: 1 on 06/21/2020 by Emre Lawson MD at [facility] Hip Left: Hip [employer] [id number] 02/19/2030 1217-32-052 / / [id number] Liner Pinn Altrx Poly 1221-36-052 - [id number] Implanted:Qty: 1 on 06/21/2020 by Emre Lawson MD at [facility] Hip Left: Hip [employer] [id number] 04/22/2025 [id number] / / [id number] Stem Fem Actis Colr Std Sz4 1010-11-040 - [id number] Implanted:Qty: 1 on 06/21/2020 by Emre Lawson MD at [facility] Hip Left: Hip [employer] [id number] 03/22/2030 1010-11-040 / / [id number] Head Fem Art/Xavier Cer Sz36 1365-36-320 - [id number] Implanted:Qty: 1 on 06/21/2020 by Emre Lawson MD at [facility] Hip Left: Hip [employer] MARY [id number] 03/22/2025 [id number] / / [id number] Procedures Procedure Name Priority Date/Time Associated Diagnosis Comments MAMMO 3D LUIS M SCREEN BILAT W OR WO CAD Routine 05/16/2020 10:39 AM CLOTH WINDER MACHINE OPERATOR Visit for screening mammogram XR DEXA BONE DENSITY AXIAL 1 OR MORE SITES Routine 08/17/2012 10:58 AM CDT Special screening for osteoporosis POC OCCULT BLOOD 1 CARD Routine 06/19/2009 2:46 PM CDT Routine Gynecological Examination from Last 3 Months or Most Recently Relevant to Health Maintenance Results * MAMMO SCRN BILAT 3D LUIS M W OR WO CAD (05/16/2020 10:39 AM CLOTH WINDER MACHINE OPERATOR) Anatomical Region Laterality Modality Breast Bilateral Mammography Narrative 05/17/2020 7:13 PM CLOTH WINDER MACHINE OPERATOR Bilateral Digital Mammogram with CAD and 3D [...] findings since the prior mammogram(s). Esther Lawson ENTREPRENEURIAL FINANCE PROFESSOR-BC MAMMO ORDERABLES Final Result * XR DEXA BONE DENSITY AXIAL 1 OR MORE SITES (08/17/2012 10:58 AM CDT) Anatomical Region Laterality Modality Nuclear Medicine 08/17/2012 10:3 7 AM CDT Impressions 08/17/2012 1:03 PM CDT Impression: Since the previous examination of 07/10/2009 bone mineral density has remained stable in both the lumbar spine and left hip. Narrative 08/17/2012 1:03 PM CDT DEXA Evaluation of the Lumbar Spine and Left Proximal Femur: Reason for Consultation: Osteoporosis. Evaluation of bone mineral density. The following absorptiometry data were obtained. The overall technical quality of the study is good. Serial measurement number four. 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 She has approximately 24% less mineral than the mean projected for a young normal, age 20 to 40. She demonstrates mild osteopenia of the neck region and normal bone mineral density of the total hip region of the left hip. Procedure Note Juvenal Simpson MD - 08/17/2012 DEXA Evaluation of the Lumbar Spine and Left Proximal Femur: Reason for Consultation: Osteoporosis. Evaluation of bone mineral density. The following absorptiometry data were obtained. The overall technical quality of the study is good. Serial measurement number four. 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 She has approximately 24% less mineral than the mean projected for a young normal, age 20 to 40. She demonstrates mild osteopenia of the neck region and normal bone mineral density of the total hip region of the left hip. IMPRESSION Impression: Since the previous examination of 07/10/2009 bone mineral density has remained stable in both the lumbar spine and left hip. Jane Cee NP DIAGNOSTIC IMAGING ORDERABL ES Final Result * POC OCCULT BLOOD 1 CARD (06/19/2009 2:46 PM CDT) OCCULT BLOOD #1 neg NEG Stool specimen (specimen) 06/19/2009 2:46 PM CDT Jane Cee NP POINT OF CARE TESTING Final Result from Last 3 Months or Most Recently Relevant to Health Maintenance Insurance MEDICARE PART A AND B GENERIC PAYOR RX [facility] Medicare Part D Care Teams Cosmetic Account Coordinator Relationship Specialty Start Date End Date Giovany Thompson MD [address] [facility] 1 [place] [phone] PCP - General 04/09/06
--- OUTSIDE RECORDS SUMMARY | 2024-10-29 22:57 | XMS_ITS | Encounter Summary ---
Author Organization [facility] Address [address] [address] [place]win: [place] [address] Care Team Providers Care Cisco Unified Communications Engineer Name Role Phone Giovany Thompson MD Primary Care Provider +1- [phone] Encounter Details Date Type Department Care Team (Late st Contact Info) Description 12/16/2000 Outpatient Historical Alise Rice MD [address] [address] Social History Tobacco Use Types Packs/Day Years Used Date Smoking Tobacco: Never Assessed Comments Unknown Sex and Gender Information Value Date Recorded Sex Assigned at Not on file Legal Sex Female 4:46 AM TRAINING INTERN Gender Identity Not on file Sexual Orientation Not on file documented as of this encounter Plan of Treatment Not on file documented as of this encounter Visit Diagnoses Not on filedocumented in this encounter Care Teams Cisco Unified Communications Engineer Relationship Specialty Start Date End Date Giovany Thompson MD [address] [place] [phone] PCP - General 04/09/06 documented as of this encounter
--- OUTSIDE RECORDS SUMMARY | 2024-10-29 22:57 | XMS_ITS | Encounter Summary ---
Author Organization [facility] Address [address] [place] [address] Care Team Providers Care Supply Aide Name Role Phone Giovany Thompson MD Primary Care Provider +1- [phone] Encounter Details Date Type Department Care Team (Late st Contact Info) Description 12/06/2002 Outpatient Historical [facility] Bib Edmondson MD [facility] [address] [address] Social History Tobacco Use Types Packs/Day Years Used Date Smoking Tobacco: Never Assessed Comments Unknown Sex and Gender Information Value Date Recorded Sex Assigned at Not on file Legal Sex Female 4:46 AM APPLIED PSYCHOLOGY CHAIR Gender Identity Not on file Sexual Orientation Not on file documented as of this encounter Plan of Treatment Not on file documented as of this encounter Visit Diagnoses Not on filedocumented in this encounter Care Teams Supply Aide Relationship Specialty Start Date End Date Giovany Thompson MD [address] [facility] 1 [place] [address] PCP - General 04/09/06 documented as of this encounter
--- OUTSIDE RECORDS SUMMARY | 2024-10-29 22:57 | XMS_ITS | Encounter Summary ---
Author Organization [facility] Address [address] [place] [address] Care Team Providers Care Medical Technologist Chemistry Name Role Phone Giovany Thompson MD Primary Care Provider +1- [phone] Encounter Details Date Type Department Care Team (Latest Contact Info) Description 12/06/2002 Outpatient Historical [facility] [address] [place] [address] Bib Edmondson MD [address] [facility] [address] [place] [address] SCREENING FOR OSTEOPOROSIS (Primary Dx) Social History Tobacco Use Types Packs/Day Years Used Date Smoking Tobacco: Never Assessed Comments Unknown Sex and Gender Information Value Date Recorded Sex Assigned at Not on file Legal Sex Female 4: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
--- OUTSIDE RECORDS SUMMARY | 2024-10-29 22:57 | XMS_ITS | Encounter Summary ---
Author Organization [facility] Address [address] [place] [address] Care Team Providers Care Elevator Installer Name Role Phone Giovany Thompson MD Primary Care Provider +1- [phone] Encounter Details Date Type Department Care Team (Latest Contact Info) Description 04/09/2006 Outpatient Historical [facility] DEXA Scan Services-Bud Andujar Mouna [address] [place] [address] Bib Edmondson MD [address] [facility] [address] [place] [address] Disorder of Bone and Cartilage, Unspecified (Primary Dx); Asymptomatic Postmenopausal Status (Age-Related) (Natural) Social History Tobacco Use Types Packs/Day Years Used Date Smoking Tobacco: Never Assessed Comments Unknown Sex and Gender Information Value Date Recorded Sex Assigned at Not on file Legal Sex Female 4:46 AM PLANNING AIDE Gender Identity Not on file Sexual Orientation Not on file documented as of this encounter Plan of Treatment Not on file documented as of this encounter Visit Diagnoses Diagnosis Disorder of bone and cartilage, unspecified- Primary Asymptomatic postmenopausal status (age-related) (natural) documented in this encounter Care Teams Elevator Installer Relationship Specialty Start Date End Date Giovany Thompson MD [address] [facility] 1 [place] [phone] PCP - General 04/09/06 documented as of this encounter
--- OUTSIDE RECORDS SUMMARY | 2024-10-29 22:57 | XMS_ITS | Encounter Summary ---
Author Organization [facility] Address [address] [place] [address] Care Team Providers Care Data Warehouse Manager Name Role Phone Giovany Thompson MD Primary Care Provider +1- [phone] Encounter Details Date Type Department Care Team (Latest Contact Info) Description 10/14/2004 Outpatient Historical [facility] OBGYN-[address] [address] Bib Edmondson MD [address] [place] [address] MASTODYNIA (Primary Dx) Social History Tobacco Use Types Packs/Day Years Used Date Smoking Tobacco: Never Assessed Comments Unknown Sex and Gender Information Value Date Recorded Sex Assigned at Not on file Legal Sex Female 4:46 AM RUBBER PRESS 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
--- OUTSIDE RECORDS SUMMARY | 2024-10-29 22:57 | XMS_ITS | Encounter Summary ---
Author Organization [facility] Address [address] [place] [address] Care Team Providers Care Data Processing Manager Name Role Phone Giovany Thompson MD Primary Care Provider +1- [phone] Reason for Referral * Outpatient Services (Routine) - Closed Specialty Diagnoses / Procedures Referred By Contac t Referred To Contact Diagnoses Other screening mammogram Procedures MAMMO DIGITAL SCREEN BILAT Bib Edmondson MD [address] [address] Phone: tel: fax: [facility] Pre-Registration [place] CALL TO MAKE APPOINTMENT ONLY [address] [place] [address] Phone: tel: fax: Referral ID Status Reason Start Date Expiration Date Visits Re quested Visits Authorized [id number] Closed 10/12/2014 11/12/2015 1 1 Encounter Details Date Type Department Care Team (Latest Contact Info) Description 10/12/[address] [facility] Pre-Registration [place] CALL TO MAKE APPOINTMENT ONLY [address] [place] [address] Bib Edmondson MD [address] [address] Other screening mammogram (Primary Dx) Social History Tobacco Use Types Packs/Day Years Used Date Smoking Tobacco: Never Smokeless Tobacco: Never Alcohol Use Standard Drinks/Week Comments No 0 (1 standard drink = 0.6 oz pur e alcohol) Comments No Sex and Gender Information Value Date Recorded Sex Assigned at Not on file Legal Sex Female 4:46 AM TABLEAU DEVELOPER Gender Identity Not on file Sexual Orientation Not on file Occupation Industry Job Start Date Job End Date Not on file Not on file Not on file Not on file documented as of this encounter Plan of Treatment Not on file documented as of this encounter Results * MAMMO DIGITAL SCREEN BILAT (12/20/2014 12:03 PM CDT) Anatomical Region Laterality Modality Breast Bilateral Mammography Narrative 12/21/2014 4:11 PM CDT Bilateral Mammogram Reason for Exam: Screening Comparison: Compared to: 10/28/2013 MAMMO DIGITAL SCREEN BILAT, 07/20/2012 MAMMO DIGITAL SCREEN BILAT, 07/14/2011 MAMMO DIGITAL SCREEN BILAT, 06/20/2010 MAMMO DIGITAL SCREEN BILAT, 06/19/2009 MAMMO DIGITAL SCREEN BILAT Findings: Bilateral CC and MLO views were obtained. This examination was reviewed with the aid of a computer-aided detection system(CAD). The breast tissue density is average. No significant new findings since the prior mammogram(s). Bib Edmondson MD MAMMO ORDERABLES Final Resul t documented in this encounter Visit Diagnoses Diagnosis Other screening mammogram- Primary Other screening mammogram documented in this encounter Care Teams Data Processing Manager Relationship Specialty Start Date End Date Giovany Thompson MD [address] [address] PCP - General 04/09/06 documented as of this encounter
--- OUTSIDE RECORDS SUMMARY | 2024-10-29 22:57 | XMS_ITS | Encounter Summary ---
Author Organization [facility] Address [address] [place] [address] Care Team Providers Care Rn Home Health Name Role Phone Giovany Thompson MD Primary Care Provider +1- [phone] Encounter Details Date Type Department Care Team (Latest Contact Info) Description 04/11/2005 Outpatient [facility] [address] [place], [place] [address] Bib Edmondson MD [address] [facility] [address] [place] [address] SCREENING MAMM-MAILG NEOPL NEC (Primary Dx) Social History Tobacco Use Types Packs/Day Years Used Date Smoking Tobacco: Never Assessed Comments Unknown Sex and Gender Information Value Date Recorded Sex Assigned at Not on file Legal Sex Female 4:46 AM GENERAL INSPECTOR Gender Identity Not on file Sexual Orientation Not on file documented as of this encounter Plan of Treatment Not on file documented as of this encounter Visit Diagnoses Diagnosis Other screening mammogram- Primary documented in this encounter Care Teams Rn Home Health Relationship Specialty Start Date End Date Giovany Thompson MD [address] [facility] 1 [place] [address] PCP - General 04/09/06 documented as of this encounter
--- OUTSIDE RECORDS SUMMARY | 2024-10-29 22:57 | XMS_ITS | Encounter Summary ---
Author Organization [facility] Address [address] [place] [address] Care Team Providers Care Code Enforcement Officer Name Role Phone Giovany Thompson MD Primary Care Provider +1- [phone] Encounter Details Date Type Department Care Team (Latest Contact Info) Description 11/07/1999 Outpatient Historical [facility] [address] [facility] [address] [place] [address] Deborah Falk MD NO ADDRESS ON FILE Other screening mammogram (Primary Dx) Social History Tobacco Use Types Packs/Day Years Used Date Smoking Tobacco: Never Assessed Comments Unknown Sex and Gender Information Value Date Recorded Sex Assigned at Not on file Legal Sex Female 4:46 AM MEDICAL IMAGING TECH Gender Identity Not on file Sexual Orientation Not on file documented as of this encounter Plan of Treatment Not on file documented as of this encounter Visit Diagnoses Diagnosis Other screening mammogram- Primary documented in this encounter Care Teams Code Enforcement Officer Relationship Specialty Start Date End Date Giovany Thompson MD [address] [facility] 1 [place] [address] PCP - General 04/09/06 documented as of this encounter
--- OUTSIDE RECORDS SUMMARY | 2024-10-29 22:57 | XMS_ITS | Encounter Summary ---
Author Organization [facility] Address [address] [place] [address] Care Team Providers Care Homicide Squad Captain Name Role Phone Giovany Thompson MD Primary Care Provider +1- [phone] Encounter Details Date Type Department Care Team (Latest Contact Info) Description 05/11/1998 Outpatient Historical [facility] [address] [facility] [address] [place] [address] Deborah Falk MD NO ADDRESS ON FILE Other sign and symptom in breast (Primary Dx) Social History Tobacco Use Types Packs/Day Years Used Date Smoking Tobacco: Never Assessed Comments Unknown Sex and Gender Information Value Date Recorded Sex Assigned at Not on file 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
--- OUTSIDE RECORDS SUMMARY | 2024-10-29 22:57 | XMS_ITS | Encounter Summary ---
Author Organization [facility] Address [address] [facility] [address] 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
--- OUTSIDE RECORDS SUMMARY | 2024-10-29 22:57 | XMS_ITS ---
Author Organization Unknown Results OrderDate OrderTestName ResultName ResultDate Value Units Range AbnormalFlag ResultStatus ObservationNotes TestCode ResultCode DateRecorded AccessionNumber DiagnosticSectionCode DiagnosticSectionName Sequence Interpretation Cust om 02/15/2024 00:00:00 CMP, SERUM OR PLASMA anion gap [id number]:00:00 6.0 calc Final CMP, SERUM OR PLASMA Coding anion gap 02/15/2024 00:00: 00:00:00URINALYSIS, [id number]:00:00 [place] Coding URINALYSIS, DIPSTICK Coding 10/14/2024 00:00: 00:00:00URINALYSIS, [id number]:00:00 Non-Hemolyzed: Trace Coding URINALYSIS, DIPSTICK Coding 10/14/2024 00:00: 00:00:00URINALYSIS, [id number]:00:00 Slightly Cloudy Coding URINALYSIS, DIPSTICK Coding 10/14/2024 00:00:00104/16/2023 00:00:00CMP, SERUM OR PLASMAcalcium 4156-68-46R60:00:009.6mg/dl8.4-10.5Final Coding CMP, SERUM OR PLASMA Coding calcium 02/15/2024 00:00: 00:00:75XBUpvl5376-95-94H08:00:0042.0%37.0-47.0 Final Coding CBC Coding hct 02/15/2024 00:00: 00:00:00URINALYSIS, [id number]:00:006.0 Coding URINALYSIS, DIPSTICK Coding 10/25/2024 00:00: 00:00:00CMP, SERUM OR PLASMAsodium 4255-60-03F89:00:90729.0mmol/l136.0-145.0Final Coding CMP, SERUM OR PLASMA Coding sodium 02/15/2024 00:00: 00:00:00URINALYSIS, [id number]:00:00 Hemolyzed: Trace Coding URINALYSIS, DIPSTICK Coding 10/25/2024 00:00: 00:00:06POYdtv9396-10-71Z93:00:004.93k026.50-5.50 Final Coding CBC Coding rbc 02/15/2024 00:00: 00:00:00CMP, SERUM OR PLASMAa/g ratio 4148-22-43M12:00:001.6ratioFinal Coding CMP, SERUM OR PLASMA Coding a/g ratio 02/15/2024 00:00: 00:00:00CMP, SERUM OR PLASMAcreatinine (serum) 5476-11-10M39:00:000.8mg/dl0.4-1.5Final Coding CMP, SERUM OR PLASMA Coding creatinine (serum) 02/15/2024 00:00: 00:00:00CBCmonocytes %0663-03-11N08:00:006.0% 2.0-16.0Final Coding CBC Coding monocytes % 02/15/2024 00:00: 00:00:00URINALYSIS, XJCMUMXP8795-63-66I06:00:005.0 Coding URINALYSIS, DIPSTICK Coding 10/14/2024 00:00: 00:00:17QUSrwl1060-33-15X83:00:0014.6g/dl12.0-16.0 Final Coding CBC Coding hgb 02/15/2024 00:00: 00:00:00CULTURE, URINEculture, urine, routine 0752-38-50M83:00:00SEE NOTEabnormalFinal Coding CULTURE, URINE Coding culture, urine, routine culture, urine, routine 10/25/2024 00:00: 00:00:00URINALYSIS, [id number]:00:00 1.020 Coding URINALYSIS, DIPSTICK Coding 10/14/2024 00:00: 00:00:00URINALYSIS, [id number]:00:00 positive Coding URINALYSIS, DIPSTICK Coding 10/14/2024 00:00: 00:00:00CMP, SERUM OR PLASMAbun/creatinine ratio 9459-47-58B20:00:0016.25ratioFinal Coding CMP, SERUM OR PLASMA Coding bun/creatinine ratio 02/15/2024 00:00: 00:00:00LIPID PANEL, BLOODhdl - direct 9302-80-15P50:00:0053.0mg/dl>40.0Final Coding LIPID PANEL, BLOOD Coding hdl - direct 02/15/2024 00:00: 00:00:00CMP, SERUM OR PLASMAglobulin 6568-33-44J32:00:002.9calcFinal Coding CMP, SERUM OR PLASMA Coding globulin 02/15/2024 00:00: 00:00:00CBCgranulcytes %7853-28-33A30:00:0068.5% 30.0-70.0Final Coding CBC Coding granulcytes % 02/15/2024 00:00: 00:00:00CMP, SERUM OR PLASMAalbumin 9829-51-75D66:00:004.5g/dl3.5-5.5Final Coding CMP, SERUM OR PLASMA Coding albumin 02/15/2024 00:00: 00:00:00URINALYSIS, [id number]:00:00 Small Coding URINALYSIS, DIPSTICK Coding 10/25/2024 00:00: 00:00:00CBClymphocytes %4747-90-27E76:00:0023.3% 20.0-50.0Final Coding CBC Coding lymphocytes % 02/15/2024 00:00: 00:00:00URINALYSIS, FGQDGQNJ8357-07-68G73:00:00 Trace Coding URINALYSIS, DIPSTICK Coding 10/14/2024 00:00: 00:00:00URINALYSIS, YHBEHPRU1513-21-41H53:00:0030 Coding URINALYSIS, DIPSTICK Coding 10/14/2024 00:00: 00:00:00URINALYSIS, XENOJQHX2054-05-22W63:00:00 1.030 Coding URINALYSIS, DIPSTICK Coding 10/25/2024 00:00: 00:00:42YVXnpc3859-97-86N11:00:0031.8pg27.0-32.0 Final Coding CBC Coding mch 02/15/2024 00:00: 00:00:00CBCmonocytes #5856-82-00P64:00:000.3x10 Final Coding CBC Coding monocytes # 02/15/2024 00:00: 00:00:00CMP, SERUM OR QXDYTGk455663-67-21T45:00:00 27.0mmol/l22.0-31.0Final Coding CMP, SERUM OR PLASMA Coding c02 02/15/2024 00:00: 00:00:00CMP, SERUM OR PLASMAtotal protein 8419-74-18L14:00:007.4g/dl6.0-8.5Final Coding CMP, SERUM OR PLASMA Coding total protein 02/15/2024 00:00: 00:00:00URINALYSIS, XQQATCFI5206-88-91C00:00:00 Yellow Coding URINALYSIS, DIPSTICK Coding 10/25/2024 00:00: 00:00:00LIPID PANEL, UZYVQqeob6809-56-65G79:00:00 108.0mg/dl0.0-150.0Final Coding LIPID PANEL, BLOOD Coding trig 02/15/2024 00:00: 00:00:89ZVEydi5488-50-90R19:00:005.1x104.0-10.5 Final Coding CBC Coding wbc 02/15/2024 00:00: 00:00:00THYROTROPIN, QN, SERUM OR PLASMAtsh 5676-73-96N62:00:003.41uiu/ml0.49-3.82Final Coding THYROTROPIN, QN, SERUM OR PL ASMA Coding tsh 02/15/2024 00:00: 00:00:00URINALYSIS, ZSAWDYHR9412-56-45K08:00:00 Trace Coding URINALYSIS, DIPSTICK Coding 10/14/2024 00:00: 00:00:41DHFxzg4392-67-82P01:00:0013.3%11.5-14.5 Final Coding CBC Coding rdw 02/15/2024 00:00: 00:00:00CMP, SERUM OR PLASMAegfr calculated 5525-20-84H20:00:0074.9Final Coding CMP, SERUM OR PLASMA Coding egfr calculated 02/15/2024 00:00: 00:00:00URINALYSIS, BTVMUYDU3569-44-92O56:00:001 Coding URINALYSIS, DIPSTICK Coding 10/14/2024 00:00: 00:00:00URINALYSIS, [id number]:00:00 Negative Coding URINALYSIS, DIPSTICK Coding 10/25/2024 00:00: 00:00:00CBCgranulcytes#7522-34-12Y26:00:003.5x10 Final Coding CBC Coding granulcytes# 02/15/2024 00:00: 00:00:00LIPID PANEL, BLOODcholesterol 5187-99-30X91:00:60279.0mg/dl0.0-200.0Final Coding LIPID PANEL, BLOOD Coding cholesterol 02/15/2024 00:00: 00:00:00THYROTROPIN, QN, SERUM OR PLASMAtsh 2167-22-32K18:00:002.11uiu/ml0.49-3.82Final Coding THYROTROPIN, QN, SERUM OR PL ASMA Coding tsh 09/21/2024 00:00: 00:00:00CMP, SERUM OR PLASMAaltv (sgpt) 8058-77-79Q70:00:0010.0u/l13.0-69.0abnormalFinal Coding CMP, SERUM OR PLASMA Coding altv (sgpt) 02/15/2024 00:00: 00:00:00LIPID PANEL, BLOODvldl - direct 4548-56-96W76:00:0021.6mg/dlFinal Coding LIPID PANEL, BLOOD Coding vldl - direct 02/15/2024 00:00: 00:00:00CMP, SERUM OR PLASMAosmolality 9401-29-84N01:00:78297.3calcFinal Coding CMP, SERUM OR PLASMA Coding osmolality 02/15/2024 00:00: 00:00:00URINALYSIS, [id number]:00:00 Clear Coding URINALYSIS, DIPSTICK Coding 10/25/2024 00:00: 00:00:00URINALYSIS, TIQEQOOI6078-87-93Q71:00:00.2 Coding URINALYSIS, DIPSTICK Coding 10/25/2024 00:00: 00:00:18QBPoqlw2863-24-83K40:00:0034.7g/dl 32.0-36.0Final Coding CBC Coding mchc 02/15/2024 00:00: 00:00:00URINALYSIS, GHWCDFDJ0993-41-73Y78:00:00 Negative Coding URINALYSIS, DIPSTICK Coding 10/25/2024 00:00: 00:00:00CMP, SERUM OR PLASMAbun (blood urea nitrogen)2990-54-77F67:00:0013.0mg/dl10.0-26.0Final Coding CMP, SERUM OR PLASMA Coding bun (blood urea nitrogen) 02/15/2024 00:00: 00:00:73WWDkpl4468-94-04X64:00:92704.1x10 140.0-451.0Final Coding CBC Coding plt 02/15/2024 00:00: 00:00:00CMP, SERUM OR PLASMAglucose 7232-92-71P72:00:45685.0mg/dl60.0-99.0highFinal Coding CMP, SERUM OR PLASMA Coding glucose 02/15/2024 00:00: 00:00:00THYROTROPIN, QN, SERUM OR PLASMAtsh 4677-44-16C06:00:005.31uiu/ml0.49-3.82highFinal Coding THYROTROPIN, QN, SERUM OR PL ASMA Coding tsh 08/22/2024 00:00: 00:00:00CMP, SERUM OR PLASMAchloride 3761-15-19F93:00:43746.0mmol/l98.0-110.0normalFinal Coding CMP, SERUM OR PLASMA Coding chloride 02/15/2024 00:00: 00:00:00HEMOGLOBIN A1C/HEMOGLOBIN TOTAL, QN, BLOOD hemaglobin o0m2134-69-84F46:00:006.14.2-6.5Final Coding HEMOGLOBIN A1C/HEMOGLOBIN TO KIMBER, QN, BLOOD Coding hemaglobin a1c hemaglobin a1c 08/22/2024 00:00: 00:00:00URINALYSIS, STXKUFIJ5249-93-06R53:00:00 Negative Coding URINALYSIS, DIPSTICK Coding 10/25/2024 00:00: 00:00:00URINALYSIS, THNBFPQI4621-76-83T79:00:00 Negative Coding URINALYSIS, DIPSTICK Coding 10/25/2024 00:00: 00:00:00CMP, SERUM OR PLASMAalp phos 4575-59-02M64:00:0095.0u/l30.0-140.0normalFinal Coding CMP, SERUM OR PLASMA Coding alp phos 02/15/2024 00:00: 00:00:00HEMOGLOBIN A1C/HEMOGLOBIN TOTAL, QN, BLOOD hemaglobin e7y9532-58-04J84:00:006.24.2-6.5Final Coding HEMOGLOBIN A1C/HEMOGLOBIN TO KIMBER, QN, BLOOD Coding hemaglobin a1c hemaglobin a1c 02/15/2024 00:00: 00:00:00URINALYSIS, PVUNQHJG8136-90-03O17:00:63319 Coding URINALYSIS, DIPSTICK Coding 10/14/2024 00:00: 00:00:00CULTURE, URINEculture, urine, routine 6364-06-86Z31:00:00SEE NOTEabnormalFinal Coding CULTURE, URINE Coding culture, urine, routine culture, urine, routine 10/14/2024 00:00: 00:00:44XILsjf1705-57-65I01:00:0091.6fl80.0-99.9 Final Coding CBC Coding mcv 02/15/2024 00:00: 00:00:00CMP, SERUM OR PLASMApotassium 5295-51-21F87:00:003.9mmol/l3.5-5.1Final Coding CMP, SERUM OR PLASMA Coding potassium 02/15/2024 00:00: 00:00:00CBClymphocytes #9539-90-47J71:00:001.2x10 Final Coding CBC Coding lymphocytes # 02/15/2024 00:00: 00:00:00CMP, SERUM OR PLASMAast (sgot) 3790-26-50J35:00:0024.0u/l0.0-46.0Final Coding CMP, SERUM OR PLASMA Coding ast (sgot) 02/15/2024 00:00: 00:00:00CMP, SERUM OR PLASMAtotal bilirubin 3405-17-71W36:00:001.2mg/dl0.2-1.3Final Coding CMP, SERUM OR PLASMA Coding total bilirubin 02/15/2024 00:00:00010/25/2024 00:00:00URINALYSIS, JRWHPQPP0222-73-00W86:00:00 negative Coding URINALYSIS, DIPSTICK Coding 10/25/2024 00:00: 00:00:00URINALYSIS, HTYEPEPO2365-21-81I00:00:00 Small Coding URINALYSIS, DIPSTICK Coding 10/14/2024 00:00: 00:00:00LIPID PANEL, BLOODldl - direct 2537-60-58W12:00:0086.4mg/dl0.0-130.0Final Coding LIPID PANEL, BLOOD Coding ldl - direct 02/15/2024 00:00:00
--- OUTSIDE RECORDS SUMMARY | 2024-10-29 22:57 | XMS_ITS | Encounter Summary ---
Author Organization [facility] Address [address] [place] [address] Care Team Providers Care Freelance Digital Project Manager Name Role Phone Giovany Thompson MD Primary Care Provider +1- [phone] Encounter Details Date Type Department Care Team (Latest Contact Info) Description 12/20/2001 Outpatient Historical [facility] [address] [facility] [address] [place] [address] Deborah Falk MD NO ADDRESS ON FILE SCREENING MAMM-MAILG NEOPL-OTHER (Primary Dx) Social History Tobacco Use Types Packs/Day Years Used Date Smoking Tobacco: Never Assessed Comments Unknown Sex and Gender Information Value Date Recorded Sex Assigned at Not on file 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
--- OUTSIDE RECORDS SUMMARY | 2024-10-29 22:57 | XMS_ITS | Encounter Summary ---
Author Organization [facility] Address [address] [place] [address] Care Team Providers Care Grill Associate Name Role Phone Giovany Thompson MD Primary Care Provider +1- [phone] Encounter Details Date Type Department Care Team (Late st Contact Info) Description 04/11/2005 Outpatient Historical [facility] FY06 Bib Edmondson MD [address] [facility] [address] [place] [address] Social History Tobacco Use Types Packs/Day Years Used Date Smoking Tobacco: Never Assessed Comments Unknown Sex and Gender Information Value Date Recorded Sex Assigned at Not on file 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
--- OUTSIDE RECORDS SUMMARY | 2024-10-29 22:57 | XMS_ITS | Encounter Summary ---
Author Organization [facility] Address [address] [place] [address] Care Team Providers Care Chicken Catcher Name Role Phone Giovany Thompson MD Primary Care Provider +1- [phone] Reason for Referral * Outpatient Services (Routine) - Closed Specialty Diagnoses / Procedures Referred By Contac t Referred To Contact Diagnoses Other screening mammogram Procedures MAMMO DIGITAL SCREEN BILAT Bib Edmondson MD [address] [address] Phone: tel: fax: [facility] Pre-Registration [place] CALL TO MAKE APPOINTMENT ONLY [address] [place] [address] Phone: tel: fax: Referral ID Status Reason Start Date Expiration Date Visits Re quested Visits Authorized [id number] Closed 08/19/2013 09/19/2014 1 1 Encounter Details Date Type Department Care Team (Latest Contact Info) Description 08/19/2013 Ancillary Orders [facility] Pre-Registration [place] CALL TO MAKE APPOINTMENT ONLY [address] [place] [address] Bib Edmondson MD [address] [address] Other screening mammogram (Primary Dx) Social History Tobacco Use Types Packs/Day Years Used Date Smoking Tobacco: Never Smokeless Tobacco: Never Alcohol Use Standard Drinks/Week Comments No 0 (1 standard drink = 0.6 oz pur e alcohol) Comments No Sex and Gender Information Value Date Recorded Sex Assigned at Not on file 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 Gender Identity Not on file Sexual Orientation Not on file Occupation Industry Job Start Date Job End Date Not on file Not on file Not on file Not on file documented as of this encounter Plan of Treatment Not on file documented as of this encounter Results * MAMMO DIGITAL SCREEN BILAT (10/28/2013 11:13 AM CDT) Anatomical Region Laterality Modality Breast Bilateral Mammography Narrative 10/31/2013 1:47 PM CDT Bilateral Mammogram Reason for Exam: Screening Comparison: Compared to: 07/20/2012 MAMMO DIGITAL SCREEN BILAT, 07/14/2011 MAMMO DIGITAL SCREEN BILAT, 06/20/2010 MAMMO DIGITAL SCREEN BILAT, 06/19/2009 MAMMO DIGITAL SCREEN BILAT, 06/13/2008 MAMMO SCREENING BILAT, 04/20/2007 MAMMO SCREENING BILAT, 04/20/2007 MAMMO SCRN TO DIAG BILAT Findings: Bilateral CC and MLO views were obtained. This examination was reviewed with the aid of a computer-aided detection system(CAD). The breast tissue is dense. No significant new findings since the prior mammogram(s). Procedure Note Deborah Falk MD - 10/31/2013 Bilateral Mammogram Reason for Exam: Screening Comparison: Compared to: 07/20/2012 MAMMO DIGITAL SCREEN BILAT, 07/14/2011MAMMO DIGITAL SCREEN BILAT, 06/20/2010 MAMMO DIGITAL SCREEN BILAT,06/19/2009 MAMMO DIGITAL SCREEN BILAT, 06/13/2008 MAMMO SCREENING BILAT,04/20/2007 MAMMO SCREENING BILAT, 04/20/2007 MAMMO SCRN TO DIAG BILAT Findings: Bilateral CC and MLO views were obtained. This examination was reviewed with the aid of a computer-aided detectionsystem(CAD). The breast tissue is dense. No significant new findings since the prior mammogram(s). us Bib Edmondson MD MAMMO ORDERABLES Final Resul t documented in this encounter Visit Diagnoses Diagnosis Other screening mammogram- Primary Other screening mammogram documented in this encounter Care Teams Chicken Catcher Relationship Specialty Start Date End Date Giovany Thompson MD [address] [address] PCP - General 04/09/06 documented as of this encounter
--- OUTSIDE RECORDS SUMMARY | 2024-10-29 22:57 | XMS_ITS | Encounter Summary ---
Author Organization [facility] Address [address] [place] [address] Care Team Providers Care Brownell Operator Name Role Phone Giovany Thompson MD Primary Care Provider +1- [phone] Encounter Details Date Type Department Care Team (Latest Contact Info) Description 12/08/2003 Outpatient Historical [facility] [address] [facility] [address] [place] [address] Deborah Falk MD NO ADDRESS ON FILE SCREENING MAMM-MAILG NEOPL-OTHER (Primary Dx) Social History Tobacco Use Types Packs/Day Years Used Date Smoking Tobacco: Never Assessed Comments Unknown Sex and Gender Information Value Date Recorded Sex Assigned at Not on file 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
--- OUTSIDE RECORDS SUMMARY | 2024-10-29 22:57 | XMS_ITS | Encounter Summary ---
Author Organization [facility] Address [address] [place] [address] Care Team Providers Care Word Processing Operator Name Role Phone Giovany Thompson MD Primary Care Provider +1- [phone] Reason for Referral * Outpatient Services (Routine) - Closed Specialty Diagnoses / Procedures Referred By Contac t Referred To Contact Radiology Diagnoses Encounter for screening mammogram for malignant neoplasm of breast Procedures MAMMO SCRN BILAT 3D LUIS M W OR WO CAD Bib Edmondson MD [address] [address] Phone: tel: fax: [facility] [address] [facility] [address] [place] [address] Phone: tel: fax: Referral ID Status Reason Start Date Expiration Date Visits Re quested Visits Authorized [id number] Closed 12/07/2017 01/07/2019 1 1 Encounter Details Date Type Department Care Team (Latest Contact Info) Description 12/07/2017 Ancillary Orders [facility] Pre-Registration [place] CALL TO MAKE APPOINTMENT ONLY [address] [place] [address] Bib Edmondson MD [address] [facility] [address] [place] [address] Encounter for screening mammogram for malignant neoplasm of breast Social History Tobacco Use Types Packs/Day Years Used Date Smoking Tobacco: Never Smokeless Tobacco: Never Alcohol Use Standard Drinks/Week Comments No 0 (1 standard drink = 0.6 oz pur e alcohol) Comments No Sex and Gender Information Value Date Recorded Sex Assigned at Not on file 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 Gender Identity Not on file Sexual Orientation Not on file Occupation Industry Job Start Date Job End Date Not on file Not on file Not on file Not on file documented as of this encounter Plan of Treatment Not on file documented as of this encounter Results * MAMMO SCRN BILAT 3D LUIS M W OR WO CAD (02/20/2018 9:33 AM EMT DRIVER) Anatomical Region Laterality Modality Breast Bilateral Mammography Narrative 02/23/2018 11:46 AM EMT DRIVER Bilateral Digital Mammogram with CAD and 3D Tomography Reason for Exam: Screening Comparison: Compared to: 12/26/2016 MAMMO SCREEN BILAT W OR WO CAD, 12/26/2015 MAMMO DIGITAL SCREEN BILAT, 12/20/2014 MAMMO DIGITAL SCREEN BILAT, 10/28/2013 MAMMO DIGITAL SCREEN BILAT, and 07/20/2012 MAMMO DIGITAL SCREEN BILAT Technique: 3D MLO [...] mammogram documented in this encounter Care Teams Word Processing Operator Relationship Specialty Start Date End Date Giovany Thompson MD [address] [place] [phone] PCP - General 04/09/06 documented as of this encounter
--- OUTSIDE RECORDS SUMMARY | 2024-10-29 22:57 | XMS_ITS | Encounter Summary ---
Author Organization [facility] Address [address] [facility] [address] 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
--- OUTSIDE RECORDS SUMMARY | 2024-10-29 22:57 | XMS_ITS | Encounter Summary ---
Author Organization [facility] Address [address] [place] [address] Care Team Providers Care Wastewater Plant Operator Name Role Phone Giovany Thompson MD Primary Care Provider +1- [phone] Encounter Details Date Type Department Care Team (Latest Contact Info) Description 04/11/2005 Outpatient Historical [facility] OBGYN-[address] [address] Bib Edmondson MD [address] [address] Routine medical exam (Primary Dx); ROUTINE IRON ASSORTER EXAMINATION Social History Tobacco Use Types Packs/Day Years Used Date Smoking Tobacco: Never Assessed Comments Unknown Sex and Gender Information Value Date Recorded Sex Assigned at Not on file Legal Sex Female 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
--- OUTSIDE RECORDS SUMMARY | 2024-10-29 22:57 | XMS_ITS | Encounter Summary ---
Author Organization [facility] Address [address] [place] [address] Care Team Providers Care Sheriff Sergeant Name Role Phone Giovany Thompson MD Primary Care Provider +1- [phone] Encounter Details Date Type Department Care Team (Late st Contact Info) Description 04/14/2007 Outpatient [facility] [address] [place] [address] Bib Edmondson MD [address] [address] Social History Tobacco Use Types Packs/Day Years Used Date Smoking Tobacco: Never Assessed Comments Unknown Sex and Gender Information Value Date Recorded Sex Assigned at Not on file Legal Sex Female 4:46 AM SPORTING GOODS SALES ASSOCIATE Gender Identity Not on file Sexual Orientation Not on file documented as of this encounter Plan of Treatment Not on file documented as of this encounter Procedures Procedure Name Priority Date/Time Associated Diagnosis Comments MAMMO SCREENING BILAT Routine 04/20/2007 10:36 AM SPORTING GOODS SALES ASSOCIATE MAMMO SCRN TO DIAG BILAT Routine 04/20/2007 10:35 AM SPORTING GOODS SALES ASSOCIATE documented in this encounter Results * MAMMO SCREENING BILAT (04/20/2007 10:36 AM SPORTING GOODS SALES ASSOCIATE) Anatomical Region Laterality Modality Breast Bilateral Other Narrative 04/20/2007 10:36 AM SPORTING GOODS SALES ASSOCIATE Report Available in [facility] Procedure Note 04/24/2008 Report Available in [facility] us Bib Edmondson MD MAMMO ORDERABLES Final Resul t * MAMMO SCRN TO PACHECO SPARKS (04/20/2007 10:35 AM SPORTING GOODS SALES ASSOCIATE) Anatomical Region Laterality Modality Breast Other Narrative 04/20/2007 10:35 AM SPORTING GOODS SALES ASSOCIATE Report Available in [facility] Procedure Note 04/24/2008 Report Available in [facility] us Bib Edmondson MD MAMMO ORDERABLES Final Resul t documented in this encounter Visit Diagnoses Not on filedocumented in this encounter Care Teams Sheriff Sergeant Relationship Specialty Start Date End Date Giovany Thompson MD [address] [address] PCP - General 04/09/06 documented as of this encounter
--- OUTSIDE RECORDS SUMMARY | 2024-10-29 22:57 | XMS_ITS | Encounter Summary ---
Author Organization [facility] Address [address] [place] [address] Care Team Providers Care Culinary Intern Name Role Phone Giovany Thompson MD Primary Care Provider +1- [phone] Encounter Details Date Type Department Care Team (Late st Contact Info) Description 04/09/2006 Outpatient Historical [facility] [address] [facility] [address] [place] [address] Sally Santos MD NO ADDRESS ON FILE Other Screening Mammogram (Primary Dx) Social History Tobacco Use Types Packs/Day Years Used Date Smoking Tobacco: Never Assessed Comments Unknown Sex and Gender Information Value Date Recorded Sex Assigned at Not on file Legal Sex Female 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
--- OUTSIDE RECORDS SUMMARY | 2024-10-29 22:57 | XMS_ITS | Encounter Summary ---
Author Organization [facility] Address [address] [place] [address] Care Team Providers Care Job Trainer Name Role Phone Giovany Thompson MD Primary Care Provider +1- [phone] Encounter Details Date Type Department Care Team (Latest Contact Info) Description 04/11/2005 Outpatient Historical [facility] [address] [facility] [address] [place] [address] Deborah Falk MD NO ADDRESS ON FILE SCREENING MAMM-MAILG NEOPL NEC (Primary Dx) Social History Tobacco Use Types Packs/Day Years Used Date Smoking Tobacco: Never Assessed Comments Unknown Sex and Gender Information Value Date Recorded Sex Assigned at Not on file Legal Sex Female 4:46 AM REHANGER Gender Identity Not on file Sexual Orientation Not on file documented as of this encounter Plan of Treatment Not on file documented as of this encounter Visit Diagnoses Diagnosis Other screening mammogram- Primary documented in this encounter Care Teams Job Trainer Relationship Specialty Start Date End Date Giovany Thompson MD [address] [facility] 1 [place] [address] PCP - General 04/09/06 documented as of this encounter
--- OUTSIDE RECORDS SUMMARY | 2024-10-29 22:58 | XMS_ITS | Encounter Summary ---
Author Organization [facility] Address [address] [place] [address] Care Team Providers Care Pressure Tester Operator Name Role Phone Giovany Thompson MD Primary Care Provider +1- [phone] Encounter Details Date Type Department Care Team (Late st Contact Info) Description 03/21/2008 Ancillary Orders [facility] [address] [facility] [address] [place] [address] Bib Edmondson MD [address] [facility] [address] [place] [address] Screening Mammogram Social History Tobacco Use Types Packs/Day Years Used Date Smoking Tobacco: Never Assessed Comments Unknown Sex and Gender Information Value Date Recorded Sex Assigned at Not on file Legal Sex Female 4:46 AM AWARD CLERK Gender Identity Not on file Sexual Orientation Not on file documented as of this encounter Plan of Treatment Not on file documented as of this encounter Results * MAMMO SCREENING BILAT (06/13/2008 11:19 AM CDT) Anatomical Region Laterality Modality Breast Bilateral Mammography Narrative 06/15/2008 4:44 PM CDT Bilateral Mammogram Reason for Exam: Screening Comparison: Comparison is made with the prior exam(s) dated 04.20.07, 12.08.03 Findings: Bilateral CC and MLO views were obtained. This examination was reviewed with the aid of a computer-aided detection system(CAD). The breast tissue density is average. No significant new findings since the prior mammogram(s). Procedure Note Sally Santos MD - 06/15/2008 Bilateral Mammogram Reason for Exam: Screening Comparison: Comparison is made with the prior exam(s) dated 04.20.07,12.08.03 Findings: Bilateral CC and MLO views were obtained. This examination was reviewed with the aid of a computer-aided detectionsystem(CAD). The breast tissue density is average. No significant new findings since the prior mammogram(s). us Bib Edmondson MD MAMMO ORDERABLES Final Resul t documented in this encounter Visit Diagnoses Diagnosis Screening mammogram Other screening mammogram Screening mammogram Other screening mammogram documented in this encounter Care Teams Pressure Tester Operator Relationship Specialty Start Date End Date Giovany Thompson MD [address] [phone] PCP - General 04/09/06 documented as of this encounter
--- OUTSIDE RECORDS SUMMARY | 2024-10-29 22:58 | XMS_ITS | Encounter Summary ---
Author Organization [facility] Address [address] [place] [address] Care Team Providers Care Elevator Serviceman Name Role Phone Giovany Thompson MD Primary Care Provider +1- [phone] Encounter Details Date Type Department Care Team (Late st Contact Info) Description 04/20/2007 Outpatient Historical [facility] OBGYN-[address] [address] Bib Edmondson MD [address] [place] [address] Social History Tobacco Use Types Packs/Day Years Used Date Smoking Tobacco: Never Assessed Comments Unknown Sex and Gender Information Value Date Recorded Sex Assigned at Not on file Legal Sex Female 4:46 AM TRACE EVIDENCE TECHNICIAN Gender Identity Not on file Sexual Orientation Not on file documented as of this encounter Progress Notes * Bib Edmondson MD - 04/20/2007 12:00 AM CST Patient Name: Deborah Nuñez DOS: 04/20/2007 : 1950 VITALS: Weight: pounds. Pulse: . BP: /. CHIEF COMPLAINT: Annual examination. HISTORY OF PRESENT ILLNESS: The patient is a 56-year-old, 2, para 2, female, who is postmenopausal. Last Pap smear 01/21/07. Mammogram was today. She is here today for annual examination. Shedoes have osteopenia bordering on osteoporosis. She was placed on Actonel last year and recommendedrepeat DEXA scan next year. Past medical history, family history, and social history reviewed. PHYSICAL EXAMINATION: See gynecological assessment form. IMPRESSION: Yearly examination. PLAN: 1. Pap smear obtained today. 2. Obtain yearly mammograms. 3. Get a DEXA scan next year. 4. Follow up with me yearly or p.r.n. Bib Edmondson M.D. COSTUMER, Isabela Electronically Signed by Bib Edmondson M.D. 04/22/2007 12:18 , 12:58 P P, 520 Document #: [id number] cc: E EVIDENCE TECHNICIAN documented in this encounter Miscellaneous Notes * Letter - Bib Edmondson MD - 04/20/2007 12:00 AM CST 04/20/2007 Savannah Deborah Ender [address] [place] [phone] Dear Heidi Savannah: I have received the results of your recent cervical Pap smear test that was taken in my office. This has been reported as negative (no evidence of malignancy and no evidence of any pre-malignant change.) As a form of good preventive medicine, it is advisable for the average woman to have this test performed once per year. However, if different recommendations have been made for you, you should followthose recommendations. Please feel free to call my office if you have any questions. Sincerely, Bib Edmondson M.D. COSTUMER, Isabela Electronically Signed by Bib Edmondson M.D. 05/03/2007 13:03 , A, mw Job #: Document #: [id number] cc: E EVIDENCE TECHNICIAN documented in this encounter Plan of Treatment Not on file documented as of this encounter Visit Diagnoses Not on filedocumented in this encounter Care Teams Elevator Serviceman Relationship Specialty Start Date End Date Giovany Thompson MD [address] [phone] PCP - General 04/09/06 documented as of this encounter
--- OUTSIDE RECORDS SUMMARY | 2024-10-29 22:58 | XMS_ITS | Encounter Summary ---
Author Organization [facility] Address [address] [place] [address] Care Team Providers Care Financial Aid Coordinator Name Role Phone Giovany Thompson MD Primary Care Provider +1- [phone] Reason for Referral * Outpatient Services (Routine) - Closed Specialty Diagnoses / Procedures Referred By Contac t Referred To Contact Diagnoses Other screening mammogram Procedures MAMMO DIGITAL SCREEN BILAT Bib Edmondson MD [address] [address] Phone: tel: fax: [facility] Pre-Registration [place] CALL TO MAKE APPOINTMENT ONLY [address] [place] [address] Phone: tel: fax: Referral ID Status Reason Start Date Expiration Date Visits Re quested Visits Authorized [id number] Closed 06/18/2012 07/19/2013 1 1 Encounter Details Date Type Department Care Team (Latest Contact Info) Description 06/18/2012 Ancillary Orders [facility] Pre-Registration [place] CALL TO MAKE APPOINTMENT ONLY [address] [place] [address] Bib Edmondson MD [address] [address] Other screening mammogram (Primary Dx) Social History Tobacco Use Types Packs/Day Years Used Date Smoking Tobacco: Never Smokeless Tobacco: Never Alcohol Use Standard Drinks/Week Comments No 0 (1 standard drink = 0.6 oz pur e alcohol) Comments No Sex and Gender Information Value Date Recorded Sex Assigned at Not on file Legal Sex Female 4:46 AM BANK CONSULTANT Gender Identity Not on file Sexual Orientation Not on file Occupation Industry Job Start Date Job End Date Not on file Not on file Not on file Not on file documented as of this encounter Plan of Treatment Not on file documented as of this encounter Results * MAMMO DIGITAL SCREEN BILAT (07/20/2012 11:11 AM CDT) Anatomical Region Laterality Modality Breast Bilateral Mammography Narrative 07/21/2012 9:54 AM CDT Bilateral Mammogram Reason for Exam: Screening Comparison: Comparison is made with the prior exam(s) dated 12 3.31.11 3.30.10 3.24.09 1.29.08 Findings: Bilateral CC and MLO views were obtained. This examination was reviewed with the aid of a computer-aided detection system(CAD). The breast tissue density is average. No significant new findings since the prior mammogram(s). Procedure Note Deborah Falk MD - 07/21/2012 Bilateral Mammogram Reason for Exam: Screening Comparison: Comparison is made with the prior exam(s) dated 123.31.11 3.30.10 3.24.09 1.29.08 Findings: Bilateral CC and MLO views were obtained. This examination was reviewed with the aid of a computer-aided detectionsystem(CAD). The breast tissue density is average. No significant new findings since the prior mammogram(s). Bib Edmondson MD MAMMO ORDERABLES Final Resul t documented in this encounter Visit Diagnoses Diagnosis Other screening mammogram- Primary Other screening mammogram documented in this encounter Care Teams Financial Aid Coordinator Relationship Specialty Start Date End Date Giovany Thompson MD [address] [place] [phone] PCP - General 04/09/06 documented as of this encounter
--- OUTSIDE RECORDS SUMMARY | 2024-10-29 22:58 | XMS_ITS | Encounter Summary ---
Author Organization [facility] Address [address] [place] [address] Care Team Providers Care Electrical Installer Name Role Phone Giovany Thompson MD Primary Care Provider +1- [phone] Reason for Referral * Outpatient Services (Routine) - Closed Specialty Diagnoses / Procedures Referred By Contac t Referred To Contact Radiology Diagnoses Other screening mammogram Procedures MAMMO DIGITAL SCREEN BILAT Bib Edmondson MD [address] [address] Phone: tel: fax: [facility] [address] [facility] [address] [place] [address] Phone: tel: fax: Referral ID Status Reason Start Date Expiration Date Visits Re quested Visits Authorized [id number] Closed 03/21/2011 03/20/2012 1 1 CASHIER Encounter Details Date Type Department Care Team (Latest Contact Info) Description 03/21/2011 Ancillary Orders [facility] Pre-Registration [place] CALL TO MAKE APPOINTMENT ONLY [address] [place] [address] Bib Edmondson MD [address] [facility] [address] [place] [address] Other screening mammogram Social History Tobacco Use Types Packs/Day Years Used Date Smoking Tobacco: Never Smokeless Tobacco: Never Alcohol Use Standard Drinks/Week Comments No 0 (1 standard drink = 0.6 oz pur e alcohol) Comments No Sex and Gender Information Value Date Recorded Sex Assigned at Not on file Legal Sex Female 4:46 AM BANK CASHIER Gender Identity Not on file Sexual Orientation Not on file documented as of this encounter Plan of Treatment Not on file documented as of this encounter Results * MAMMO DIGITAL SCREEN BILAT (07/14/2011 2:00 PM CDT) Anatomical Region Laterality Modality Breast Bilateral Mammography Narrative 07/15/2011 1:29 PM CDT Bilateral Mammogram Reason for Exam: Screening Comparison: Comparison is made with the prior exam(s) dated 06/13/2008. Findings: Bilateral CC and MLO views were obtained. This examination was reviewed with the aid of a computer-aided detection system(CAD). The breast tissue density is average. No significant new findings since the prior mammogram(s). Procedure Note Rabia Kovacs MD - 07/15/2011 Bilateral Mammogram Reason for Exam: Screening Comparison: Comparison is made with the prior exam(s) dated 06/13/2008. Findings: Bilateral CC and MLO views were obtained. This examination was reviewed with the aid of a computer-aided detectionsystem(CAD). The breast tissue density is average. No significant new findings since the prior mammogram(s). Bib Edmondson MD MAMMO ORDERABLES Final Resul t documented in this encounter Visit Diagnoses Diagnosis Other screening mammogram Other screening mammogram documented in this encounter Care Teams Electrical Installer Relationship Specialty Start Date End Date Giovany Thompson MD [address] [place] [phone] PCP - General 04/09/06 documented as of this encounter
--- OUTSIDE RECORDS SUMMARY | 2024-10-29 22:58 | XMS_ITS | Encounter Summary ---
Author Organization [facility] Address [address] [place] [address] Care Team Providers Care Publishing Manager Name Role Phone Giovany Thompson MD Primary Care Provider +1- [phone] Encounter Details Date Type Department Care Team (Late Contact Info) Description 10/26/2024 External Device Data [facility] ABSTRACTION Provider, Abstract NO ADDRESS ON FILE Social History Tobacco Use Types Packs/Day Years Used Date Smoking Tobacco: Former Cigarettes 0.3 7 0 03/23/1969 - 03/23/1976 Smokeless Tobacco: Never Alcohol Use Standard Drinks/Week Comments No 0 (1 standard drink = 0.6 oz pur e alcohol) Comments No Sex and Gender Information Value Date Recorded Sex Assigned at Not on file Legal Sex Female 4:37 PM 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 Gender Identity Not on file Sexual Orientation Not on file documented as of this encounter Plan of Treatment Upcoming Encounters Date Type Department Care Team (Late st Contact Info) Description 08/28/2025 12:30 PM CDT Appointment [facility] [address] [facility] [address] [place] [address] Esther Lawson, HAND ALTERATIONS SEAMSTRESS- [address] [facility] [address] [place] [address] documented as of this encounter Visit Diagnoses Not on filedocumented in this encounter Care Teams Publishing Manager Relationship Specialty Start Date End Date Giovany Thompson MD [address] [facility] [address] [place] [address] PCP - General 04/09/06 documented as of this encounter
--- OUTSIDE RECORDS SUMMARY | 2024-10-29 22:58 | XMS_ITS | Encounter Summary ---
Author Organization [facility] Address [address] [place] [address] Care Team Providers Care Hose Wrapper Name Role Phone Giovany Thompson MD Primary Care Provider +1- [phone] Encounter Details Date Type Department Care Team (Late st Contact Info) Description 03/26/2009 Ancillary Orders [facility] OBGYN-[address] [address] Bib Edmondson MD [address] [address] Other Screening Mammogram Social History Tobacco Use Types Packs/Day Years Used Date Smoking Tobacco: Never Assessed Comments No Sex and Gender Information Value Date Recorded Sex Assigned at Not on file Legal Sex Female 4:46 AM STUDENT DEVELOPMENT COORDINATOR Gender Identity Not on file Sexual Orientation Not on file documented as of this encounter Plan of Treatment Not on file documented as of this encounter Results * MAMMO DIGITAL SCREEN BILAT (06/19/2009 2:02 PM CDT) Anatomical Region Laterality Modality Breast Bilateral Mammography Narrative 06/20/2009 12:15 PM CDT Bilateral Mammogram Reason for Exam: Screening Comparison: Comparison is made with the prior exam(s) dated 12.08.03, 1.08, 3 Findings: Bilateral CC and MLO views were obtained. This examination was reviewed with the aid of a computer-aided detection system(CAD). The breast tissue density is average. No significant new findings since the prior mammogram(s). Procedure Note Sally Santos MD - 06/20/2009 Bilateral Mammogram Reason for Exam: Screening Comparison: Comparison is made with the prior exam(s) dated 12.08.03,04.20.07, 3 Findings: Bilateral CC and MLO views were obtained. This examination was reviewed with the aid of a computer-aided detectionsystem(CAD). The breast tissue density is average. No significant new findings since the prior mammogram(s). us Bib Edmondson MD MAMMO ORDERABLES Final Resul t documented in this encounter Visit Diagnoses Diagnosis Other screening mammogram Other screening mammogram documented in this encounter Care Teams Hose Wrapper Relationship Specialty Start Date End Date Giovany Thompson MD [address] [phone] PCP - General 04/09/06 documented as of this encounter
--- OUTSIDE RECORDS SUMMARY | 2024-10-29 22:58 | XMS_ITS | Encounter Summary ---
Author Organization [facility] Address [address] [place] [address] Care Team Providers Care Bronc Buster Name Role Phone Giovany Thompson MD Primary Care Provider +1- [phone] Reason for Referral * Outpatient Services (Routine) - Closed Specialty Diagnoses / Procedures Referred By Contac t Referred To Contact Diagnoses Other screening mammogram Procedures MAMMO DIGITAL SCREEN BILAT Bib Edmondson MD [address] [address] Phone: tel: fax: Referral ID Status Reason Start Date Expiration Date Visits Re quested Visits Authorized [id number] Closed 04/11/2010 10/08/2010 1 1 W Encounter Details Date Type Department Care Team (Late st Contact Info) Description 04/11/2010 Ancillary Orders [facility] [address] [facility] [address] [place] [address] Bib Edmondson MD [address] [facility] [address] [place] [address] Other screening mammogram Social History Tobacco Use Types Packs/Day Years Used Date Smoking Tobacco: Never Alcohol Use Standard Drinks/Week Comments No 0 (1 standard drink = 0.6 oz pur e alcohol) Comments No Sex and Gender Information Value Date Recorded Sex Assigned at Not on file Legal Sex Female 4:46 AM LICSW Gender Identity Not on file Sexual Orientation Not on file documented as of this encounter Plan of Treatment Not on file documented as of this encounter Results * MAMMO DIGITAL SCREEN BILAT (06/20/2010 11:38 AM CDT) Anatomical Region Laterality Modality Breast Bilateral Mammography Narrative 06/21/2010 9:44 AM CDT Bilateral Mammogram Reason for Exam: Screening Comparison: Comparison is made with the prior exam(s) dated 06.19.09 Findings: Bilateral CC and MLO views were obtained. This examination was reviewed with the aid of a computer-aided detection system(CAD). The breast tissue density is average. No significant new findings since the prior mammogram(s). Procedure Note Jonah Guzman MD - 06/21/2010 Bilateral Mammogram Reason for Exam: Screening Comparison: Comparison is made with the prior exam(s) dated 06.19.09 Findings: Bilateral CC and MLO views were obtained. This examination was reviewed with the aid of a computer-aided detectionsystem(CAD). The breast tissue density is average. No significant new findings since the prior mammogram(s). Bib Edmondson MD MAMMO ORDERABLES Final Resul t documented in this encounter Visit Diagnoses Diagnosis Other screening mammogram Other screening mammogram documented in this encounter Care Teams Bronc Buster Relationship Specialty Start Date End Date Giovany Thompson MD [address] [place] [phone] PCP - General 04/09/06 documented as of this encounter
--- OUTSIDE RECORDS SUMMARY | 2024-10-29 22:58 | XMS_ITS | Encounter Summary ---
Author Organization [facility] Address [address] [place] [address] Care Team Providers Care Value Analysis Coordinator Name Role Phone Giovany Thompson MD Primary Care Provider +1- [phone] Encounter Details Date Type Department Care Team (Late st Contact Info) Description 04/20/2007 Outpatient [facility] [address] [facility] [address] [place] [address] Social History Tobacco Use Types Packs/Day Years Used Date Smoking Tobacco: Never Assessed Comments Unknown Sex and Gender Information Value Date Recorded Sex Assigned at Not on file Legal Sex Female 4:46 AM CORRECTION OFFICER Gender Identity Not on file Sexual Orientation Not on file documented as of this encounter Plan of Treatment Not on file documented as of this encounter Visit Diagnoses Not on filedocumented in this encounter Care Teams Value Analysis Coordinator Relationship Specialty Start Date End Date Giovany Thompson MD [address] [place] [address] [address] [place] [phone] PCP - General 04/09/06 documented as of this encounter
--- NOTE | 2024-10-29 23:24 | XRR_ITS ---
PROCEDURE INFORMATION: Exam: XR Chest Exam date and time: 10/29/2024 11:50 PM Age: 73 years old Clinical indication: Shortness of breath; Additional info: SOB, hypoxia TECHNIQUE: Imaging protocol: Radiologic exam of the chest. Views: 1 view. COMPARISON: No relevant prior studies available. FINDINGS: Lungs: Low lung volumes, limits exam. Few streaky opacities at the lung bases, probably related to low lung volumes although other etiologies not totally excluded. Pleural spaces: Unremarkable. No pleural effusion. No pneumothorax. Heart/Mediastinum: Unremarkable. No cardiomegaly. Bones/joints: Unremarkable. Other findings: Single view. XR/XR chest 1V portable [id number] IMPRESSION: No definite acute infiltrate or effusion.
--- NOTE | 2024-10-29 23:24 | ECG_ITS ---
[facility] Date: 2024-10-29 Pat Name: Deborah Nuñez Department: Room: [facility] Gender: Female Broadcast Maintenance Engineer: : 1950 Requested By: Esvin Cameron Order Number: [id number] Rodolfo MD: Linda Billy M.D. Measurements Intervals [place] Rate: 80 P: -7 AL: 141 QRS: 4 QRSD: 77 T: 64 QT: 315 QTc: 364 Interpretive Statements SINUS RHYTHM NONSPECIFIC ST & T-WAVE ABNORMALITY No previous ECG available for comparison Electronically Signed On 11-01-2024 08:17:56 CDT by Linda Billy M.D. [email or web address]
--- NOTE | 2024-10-29 23:48 | CTR_ITS ---
PROCEDURE INFORMATION: Exam: CTA Chest With Contrast Exam date and time: 10/30/2024 12:44 AM Age: 73 years old Clinical indication: Abnormal findings; Abnormal diagnostic tests; Elevated d-dimer; Shortness of breath; SOB with hypoxia. Dimer 0.73. ; Additional info: Elevated d dimer, hypoxia, SOB TECHNIQUE: Imaging protocol: Computed tomographic angiography of the chest with contrast. Exam focused on the arteries. 3D rendering (Not supervised by radiologist): MIP and/or 3D reconstructed images were created by the technologist. Radiation optimization: All CT scans at this facility use at least one of these dose optimization techniques: automated exposure control; mA and/or kV adjustment per patient size (includes targeted exams where dose is matched to clinical indication); or iterative reconstruction. Contrast material: OMNI 350; Contrast volume: 57 ml; Contrast route: INTRAVENOUS (IV); COMPARISON: CR (CHEST, ) 10/29/2024 11:50 PM RADIATION DOSE METRICS: Total DLP (mGy-cm): 448.88 FINDINGS: Pulmonary arteries: Normal. No pulmonary emboli. Great vessels off aortic arch: Probable bovine arch. Aortic atherosclerosis. Aorta: See Great vessels off aortic arch finding. Lungs: Patchy streaky opacities in the lung bases, nonspecific, concerning for atelectasis with infection not totally excluded. Elevated right hemidiaphragm. Pleural spaces: Unremarkable. No pneumothorax. No pleural effusion. Heart: Unremarkable. No cardiomegaly. No pericardial effusion. Lymph nodes: Unremarkable. No enlarged lymph nodes. Bones/joints: Moderate degenerative changes of the thoracic spine with DISH Soft tissues: Unremarkable. CT/CT angio chest PE protcl [id number] IMPRESSION: No definitive radiographic evidence of pulmonary embolism. Aortic atherosclerosis. Patchy streaky opacities in the lung bases, nonspecific, concerning for atelectasis with infection not totally excluded. Elevated right hemidiaphragm.
[2024-10-29 23:53] LABS: Lactic Sepsis W/Reflex 2.6 mmol/L (0.5-2.2)
[2024-10-29 23:54] LABS: Hematocrit 44.4 % (36-47); Hemoglobin 14.80 g/dL (11.27-16.99); Mean Corpuscular HGB Conc 33.3 g/dL (30-55); Mean Corpuscular Hemoglobin 31.2 pg (27-33); Mean Corpuscular Volume 93.5 fl (85-98); Nucleated Red Blood Cells % 0 %; Platelet Count 280 10^3/cmm (157-399); Red Blood Count 4.75 10^6/uL (3.85-5.65); White Blood Count 11.45 10^3/uL (3.29-11.43)
[2024-10-29 23:55] LABS: Troponin(5th) Baseline 10 ng/L (0-10)
[2024-10-30] VITALS (67 sets, daily range): BP systolic 104–180; BP diastolic 59–108; PULSE 68–127; RESP 12–29; TEMP 36.6–37.2; O2SAT 91–99; BMI 36.9
[2024-10-30 00:03] LABS: NT Pro B Type Natriuretic Pept 145 pg/mL (0-125); Procalcitonin 0.22 ng/mL (0-0.5); Reflex Lactate Order REFLEX LACTIC ORDERD
[2024-10-30 00:14] LABS: Alanine Aminotransferase 13 U/L (0-33); Albumin Level 4.2 g/dL (3.5-5.2); Alkaline Phosphatase 101 U/L (35-105); Anion Gap 16.5 (5-19); Aspartate Amino Transferase 24 U/L (0-32); Blood Urea Nitrogen 14 mg/dL (8-23); Calcium 9.6 mg/dL (8.5-10.5); Carbon Dioxide 26 mmol/L (22-29); Chloride 101 mmol/L (98-107); Creatinine Clr Calc Pharmacy 85.3746; Globulin 2.9 g/dL (1.3-4.6); Glucose 146 mg/dL (65-115); Osmolality Calculated 293 mOsm/kg (285-295); Potassium 3.5 mmol/L (3.5-5.1); Sodium 140 mmol/L (136-145); Total Protein 7.1 g/dL (6.6-8.7)
--- NOTE | 2024-10-30 00:14 | W.ED.URI ---
Documented by User: JA Montana 10/30/24 01:31 HPI - URI/Sore Throat General: Chief Complaint: Upper Respiratory Infection Stated Complaint: SOB Time Seen by Provider: 10/29/24 23:09 Source: patient Mode of arrival: ambulatory Limitations: no limitations History of Present Illness: Patient is a 73-year-old female who presents to the emergency department complaining of shortness of breath. She has been coughing and wheezing for a few weeks now, recently was treated for sinus infection with amoxicillin but states that she had to stop this due to adverse reaction. Also has noted intermittent fevers. She is not hypoxic with triage 85 on room air, does not use oxygen regularly. Bring her back to the ER she is down to the low 70s and is immediately placed on 10 L nonrebreather. Her complaint is shortness of breath and a cough, however is not reporting any chest pain, peripheral edema, lightheadedness or dizziness, or any other symptoms. Does not report history of COPD, CHF, heart disease, or any other major concerns. No history of asthma. Appears to be in respiratory distress with mild increased work of breathing at this time. MD elicited complaint: cough and other (Shortness of breath) Onset (ago): week(s) Consistency: constant and progressively worsening Context: other (Recent upper respiratory infection) Associated symptoms: Reports fever(s); Deny abdominal pain, chills, chest pain, diarrhea, ear or mastoid pain, headache(s), nausea or vomiting Treatments prior to arrival: antibiotics Related Data Home Medications ?Medication ?Instructions ?Recorded ?Confirmed levothyroxine 100 mcg capsule 100 mcg PO DAILY 01/23/21 09/21/24 omeprazole 20 mg capsule,delayed 20 mg PO DAILY 01/23/21 09/21/24 release sertraline 50 mg tablet 50 mg PO DAILY 01/23/21 09/21/24 simvastatin 40 mg tablet 40 mg PO DAILY 01/23/21 09/21/24 hydrocodone 5 mg-acetaminophen 325 1 tab PO Q8H PRN 01/28/22 09/21/24 mg tablet ibuprofen 200 mg tablet 200 mg PO Q6H PRN 01/28/22 09/21/24 Previous Rx's ?Medication ?Instructions ?Recorded tizanidine 4 mg tablet 4 mg PO BID PRN muscle spasticity 09/10/23 #60 tabs Allergies Allergy/AdvReac Type Severity Reaction Status Date / Time No Known Allergies Allergy Verified 09/21/24 09:31 Review of Systems General: Reports: 10 or more systems reviewed and unremarkable except in HPI and below Const: Reports: fever(s); Denies: chills or fatigue Eyes: Denies: change in vision ENMT: Denies: throat pain, ear or mastoid pain or nasal discharge Card: Denies: chest pain, palpitations, swelling of feet/ankles or lightheadedness Resp: Reports: dyspnea, productive cough and wheezing GI: Denies: abdominal pain, nausea, vomiting, diarrhea or constipation : Denies: flank pain, difficulty voiding, dysuria or urinary frequency Musc: Denies: neck pain, back pain or joint pain Skin/Breast: Denies: rash Neuro: Denies: headache(s), numbness in extremities or weakness in extremities PFSH ED PFSH: Medical History Closed fracture of proximal phalanx of toe of left foot Second toe Closed fracture of proximal phalanx of toe of left foot Third toe Closed fracture of proximal phalanx of toe of left foot Fourth toe Surgical History (Updated 10/30/24 @ 02:07 by Herrera Caballero MD) History of left hip replacement Hx of appendectomy Hx of cholecystectomy Family History Other Cancer Social History Smoking and tobacco/nicotine status: never used tobacco/nicotine Alcohol intake: never Substance/Drug Use: never Physical Exam Const: COMMON NORMALS: patient oriented x3 GENERAL APPEARANCE: cooperative and well developed NUTRITIONAL APPEARANCE: obese ORIENTATION/CONSCIOUSNESS: Yes awake, Yes oriented to person, Yes oriented to place and Yes oriented to time HENMT: COMMON NORMALS: normocephalic, atraumatic and hearing grossly normal bilaterally HEAD & SCALP: normocephalic and atraumatic Eye: COMMON NORMALS: Equal, round and reactive pupils present, EOMs intact bilaterally and conjunctivae normal CONJUNCTIVA: Yes conjunctivae normal PUPIL: Yes Equal, round and reactive pupils present Neck/C-Spine: COMMON NORMALS: full ROM, supple and no JVD Resp: EFFORT & INSPECTION: Yes tachypneic and Yes respiratory distress AUSCULTATION: wheezes left lower and right lower Cardio: COMMON NORMALS: no JVD, regular rate, regular rhythm, No clicks present (Cardio), No murmurs present (Cardio) and No rub (Cardio) RATE: regular rate RHYTHM: regular rhythm GI: COMMON NORMALS: Normal to inspection, nondistended, normoactive bowel sounds present, Soft to palpation and non-tender AUSCULTATION: Yes normoactive bowel sounds PALPATION: Yes Soft to palpation RECTAL EXAM: deferred Back/Pelvis: COMMON NORMALS: thoracic and lumbar spine normal to inspection, no thoracic nor lumbar tenderness and thoraco-lumbar ROM normal Extremity: COMMON NORMALS: normal to inspection, full ROM and capillary refill normal NARRATIVE EXTREMITY EXAM: 2+ edema bilaterally Neuro: COMMON NORMALS: patient oriented x3, moves all extremities, no focal motor deficits and no sensory deficits noted SENSORIUM/ORIENTATION: Yes oriented to person, Yes oriented to place and Yes oriented to time Psych: COMMON NORMALS: mental status grossly normal and Normal thought process present THOUGHT PROCESS: Normal thought process present Skin: COMMON NORMALS: no rashes or lesions noted GENERAL SKIN EXAM: no rashes or lesions noted Course Vital Signs: Vital signs: Vital Signs Temperature 97.8 F 10/29/24 22:57 Pulse Rate 91 10/30/24 01:51 Respiratory Rate 18 10/30/24 01:51 Blood Pressure 160/93 10/30/24 01:14 Pulse Oximetry 99 10/30/24 01:51 Oxygen Delivery Me thod High Flow Nasal C annula 10/30/24 01:51 Oxygen Flow Rate 8 10/30/24 01:51 MDM - URI/Sore Throat Medical Decision Making Patient presented with shortness of breath, she has been dealing with symptoms for a few weeks now, recently treated with amoxicillin for an upper respiratory infection. She arrived hypoxic with triage, 85 on room air and by the time she got back into the room was in the low 70s. Immediately was placed on 10 L nonrebreather. Wheezes at the bases on exam, overall did not appear fluid overloaded. She had no comorbid conditions other than obesity, no history of COPD and she is a non-smoker. No cardiac history. Chest x-ray was negative, D-dimer positive so CTA was ordered but ruled out pulmonary embolism, and streaky opacities in the lung bases that were nonspecific overall. No significant elevation of the white count, lactic minimally elevated to 2.6, likely from tissue hypoperfusion. ABG appeared unremarkable. Metabolic panel was normal. Currently still awaiting respiratory panel, however with her requiring oxygen and no history of oxygen, I spoke to hospitalist, Dr. Caballero, who agrees accept the patient to the ICU. I favor viral illness at this time, likely COVID but this panel still pending. Dr. Norman putting in admit orders. Lab Data 10/29/24 23:14 10/29/24 23:14 Radiology Impressions Chest X-Ray 10/29/24 23:24 IMPRESSION: No definite acute infiltrate or effusion. Chest CTA 10/29/24 23:48 IMPRESSION: No definitive radiographic evidence of pulmonary embolism. Aortic atherosclerosis. Patchy streaky opacities in the lung bases, nonspecific, concerning for atelectasis with infection not totally excluded. Elevated right hemidiaphragm. Laboratory Results WBC 11.45 10^3/uL (3.29-11.43) H 10/29/24 23:14 RBC 4.75 10^6/uL (3.85-5.65) 10/29/24 23:14 Hgb 14.80 g/dL (11.27-16.99) 10/29/24 23:14 Hct 44.4 % (36-47) 10/29/24 23:14 MCV 93.5 fl (85-98) 10/29/24 23:14 MCH 31.2 pg (27-33) 10/29/24 23:14 MCHC 33.3 g/dL (30-55) 10/29/24 23:14 RDW 12.3 % (12.1-15.1) 10/29/24 23:14 Plt Count 280 10^3/cmm (157-399) 10/29/24 23:14 MPV 10.5 fL (7.4-10.4) H 10/29/24 23:14 Neut % (Auto) 73.9 % 10/29/24 23:14 Lymph % (Auto) 17.8 % 10/29/24 23:14 Logan % (Auto) 5.2 % 10/29/24 23:14 Eos % (Auto) 2.5 % 10/29/24 23:14 Baso % (Auto) 0.3 % 10/29/24 23:14 Neut # (Auto) 8.46 10^3/uL (1.8-7.7) H 10/29/24 23:14 Lymph # (Auto) 2.0 10^3/uL (0.8-4.8) 10/29/24 23:14 Logan # (Auto) 0.6 10^3/uL (0.2-0.9) 10/29/24 23:14 Eos # (Auto) 0.3 10^3/uL (0.0-0.8) 10/29/24 23:14 Baso # (Auto) 0.0 10^3/uL (0.0-0.1) 10/29/24 23:14 Nucleated RBC % (auto) 0 % 10/29/24 23:14 Nucleated RBCs # 0.0 /100WBC 10/29/24 23:14 Haptoglobin 190.0 mg/L (30-200) 10/30/24 01:22 D-Dimer 0.73 ug/mLFEU (0-0.59) H 10/29/24 23:14 Specimen Type Arterial 10/29/24 12:09 Sample Site Radial, right 10/29/24 12:09 ABG pH 7.39 (7.35-7.45) 10/29/24 12:09 ABG pCO2 42.4 mmHg (35-45) 10/29/24 12:09 ABG pO2 76.1 mmHg (80.0-100.0) L 10/29/24 12:09 ABG PO2/FiO2 Ratio 84 10/29/24 12:09 ABG HCO3 25.7 mmol/L (22-26) 10/29/24 12:09 ABG O2 Saturation 95.9 10/29/24 12:09 ABG Base Excess 0.6 mmol/L (-2.0-2.0) 10/29/24 12:09 Fredy Test Pos 10/29/24 12:09 A-a O2 Gradient 66.7 mmHg (5-10) H 10/29/24 12:09 Hematocrit 43.5 % (37-47) 10/29/24 12:09 Hgb O2 Saturation 93.9 % (95-100) L 10/29/24 12:09 Carboxyhemoglobin 1.0 %THgb (0.4-20.1) 10/29/24 12:09 Methemoglobin 1.0 % (0.4-1.5) 10/29/24 12:09 Total Hemoglobin 14.2 g/dL (12-16) 10/29/24 12:09 Sodium 144.0 mmol/L (131-143) H 10/29/24 12:09 Potassium 3.3 mmol/L (3.5-5.0) L 10/29/24 12:09 Glucose 174.0 mg/dL (70-115) H 10/29/24 12:09 Ionized Calcium 1.2 mmol/L (1.1-1.4) 10/29/24 12:09 O2 Delivery Device Nrb 10/29/24 12:09 O2 Liters/Min 10.0 % 10/29/24 12:09 FiO2 90.0 % 10/29/24 12:09 Adobe Cq Developer ID [email or web address] 10/29/24 12:09 Sodium 140 mmol/L (136-145) 10/29/24 23:14 Potassium 3.5 mmol/L (3.5-5.1) 10/29/24 23:14 Chloride 101 mmol/L (98-107) 10/29/24 23:14 Carbon Dioxide 26 mmol/L (22-29) 10/29/24 23:14 Anion Gap 16.5 (5-19) 10/29/24 23:14 BUN 14 mg/dL (8-23) 10/29/24 23:14 Creatinine 0.8 mg/dL (0.5-0.9) 10/29/24 23:14 GFR Calculation Not Reportable 10/29/24 23:14 Glucose 146 mg/dL (65-115) H 10/29/24 23:14 Estimat Average Glucose 137 10/29/24 23:14 Hemoglobin A1c 6.4 % (4.0-6.0) H 10/29/24 23:14 Calculated Osmolality 293 mOsm/kg (285-295) 10/29/24 23:14 Lactic Acid 2.6 mmol/L (0.5-2.2) H 10/29/24 23:14 Lactic Acid (Sepsis) 2.1 mmol/L (0.5-2.2) 10/30/24 02:02 Calcium 9.6 mg/dL (8.5-10.5) 10/29/24 23:14 Total Bilirubin 0.6 mg/dL (0.15-1.2) 10/29/24 23:14 AST 24 U/L (0-32) 10/29/24 23:14 ALT 13 U/L (0-33) 10/29/24 23:14 Alkaline Phosphatase 101 U/L (35-105) 10/29/24 23:14 Lactate Dehydrogenase 208 U/L (135-214) 10/30/24 01:22 Troponin T Baseline 10 ng/L (0-10) 10/29/24 23:14 Troponin T 120 Minute 9.85 ng/L (0-10) 10/30/24 01:22 Delta Troponin T -0.15 ABS# (0-10) L 10/30/24 01:22 NT-Pro-B Natriuret Pep 145 pg/mL (0-125) H 10/29/24 23:14 Total Protein 7.1 g/dL (6.6-8.7) 10/29/24 23:14 Albumin 4.2 g/dL (3.5-5.2) 10/29/24 23:14 Globulin 2.9 g/dL (1.3-4.6) 10/29/24 23:14 Procalcitonin 0.22 ng/mL (0-0.5) 10/29/24 23:14 Urine Color Yellow (Yellow) 10/30/24 01:00 Urine Appearance Clear (CLEAR) 10/30/24 01:00 Urine pH 5.0 (5-7) 10/30/24 01:00 Ur Specific Woodlyn 1.025 (1.005-1.030) 10/30/24 01:00 Urine Protein Trace (Negative) A 10/30/24 01:00 Urine Glucose (UA) Negative (Normal) 10/30/24 01:00 Urine Ketones Negative (Negative) 10/30/24 01:00 Urine Blood Negative (Negative) 10/30/24 01:00 Urine Nitrate Negative (Negative) 10/30/24 01:00 Urine Bilirubin Negative (Negative) 10/30/24 01:00 Urine Urobilinogen 1.0 mg/dL (Negative) 10/30/24 01:00 Ur Leukocyte Esterase 1+ (Negative) A 10/30/24 01:00 Urine RBC 0-2 /hpf (0-2) 10/30/24 01:00 Urine WBC 0-5 /hpf (0-5) 10/30/24 01:00 Ur Squamous Epith Cells 0-5 /hpf (0-5) 10/30/24 01:00 Amorphous Sediment Not Reportable 10/30/24 01:00 Urine Bacteria None seen /hpf (NONE) 10/30/24 01:00 Hyaline Casts 3.71 /lpf 10/30/24 01:00 Adenovirus (PCR) Not detected (NOT DETECT) 10/29/24 23:35 C. pneumoniae DNA (PCR) Not detected (NOT DETECT) 10/29/24 23:35 Coronavirus 229E (PCR) Not detected (NOT DETECT) 10/29/24 23:35 Human Metapneumovir PCR Not detected (NOT DETECT) 10/29/24 23:35 Influenza A (H1) PCR Not detected (NOT DETECT) 10/29/24 23:35 Influ A (H1/09) PCR Not detected (NOT DETECT) 10/29/24 23:35 Influenza A (H3) PCR Not detected (NOT DETECT) 10/29/24 23:35 Influenza Type A (PCR) Not detected (NOT DETECT) 10/29/24 23:35 Influenza Type B (PCR) Not detected (NOT DETECT) 10/29/24 23:35 M. pneumoniae (PCR) Not detected (NOT DETECT) 10/29/24 23:35 Parainfluenza 1 (PCR) Not detected (NOT DETECT) 10/29/24 23:35 Parainfluenza 2 (PCR) Not detected (NOT DETECT) 10/29/24 23:35 Parainfluenza 3 (PCR) Not detected (NOT DETECT) 10/29/24 23:35 Parainfluenza 4 (PCR) Not detected (NOT DETECT) 10/29/24 23:35 RSV Type A (PCR) Not detected (NOT DETECT) 10/29/24 23:35 RSV Type B (PCR) Not detected (NOT DETECT) 10/29/24 23:35 Entero/Rhino (PCR) Not detected (NOT DETECT) 10/29/24 23:35 SARS-CoV-2 (PCR) Not detected (NOT DETECT) 10/29/24 23:35 All radiology interpretation(s) finalized by discharge Discharge Plan Discharge Patient Disposition: Admitted As Inpatient Admit Provider: Herrera Caballero Clinical Impression: Acute hypoxic respiratory failure Condition: Stable Coding Level of Care Code ED Enamel Burner for Rajat Fwjanay Documented by User: Carl Norman DO 10/30/24 02:58 HPI - URI/Sore Throat General: Chief Complaint: Upper Respiratory Infection Stated Complaint: SOB Time Seen by Provider: 10/29/24 23:09 Related Data Home Medications ?Medication ?Instructions ?Recorded ?Confirmed levothyroxine 100 mcg capsule 100 mcg PO DAILY 01/23/21 09/21/24 omeprazole 20 mg capsule,delayed 20 mg PO DAILY 01/23/21 09/21/24 release sertraline 50 mg tablet 50 mg PO DAILY 01/23/21 09/21/24 simvastatin 40 mg tablet 40 mg PO DAILY 01/23/21 09/21/24 hydrocodone 5 mg-acetaminophen 325 1 tab PO Q8H PRN 01/28/22 09/21/24 mg tablet ibuprofen 200 mg tablet 200 mg PO Q6H PRN 01/28/22 09/21/24 Previous Rx's ?Medication ?Instructions ?Recorded tizanidine 4 mg tablet 4 mg PO BID PRN muscle spasticity 09/10/23 #60 tabs Allergies Allergy/AdvReac Type Severity Reaction Status Date / Time No Known Allergies Allergy Verified 09/21/24 09:31 [facility] ED PFSH: Medical History Closed fracture of proximal phalanx of toe of left foot Second toe Closed fracture of proximal phalanx of toe of left foot Third toe Closed fracture of proximal phalanx of toe of left foot Fourth toe Surgical History (Updated 10/30/24 @ 02:07 by Herrera Caballero MD) History of left hip replacement Hx of appendectomy Hx of cholecystectomy Family History Other Cancer Social History Smoking and tobacco/nicotine status: never used tobacco/nicotine Alcohol intake: never Substance/Drug Use: never Course Vital Signs: Vital signs: Vital Signs Temperature 97.8 F 10/29/24 22:57 Pulse Rate 91 10/30/24 01:51 Respiratory Rate 18 10/30/24 01:51 Blood Pressure 160/93 10/30/24 01:14 Pulse Oximetry 99 10/30/24 01:51 Oxygen Delivery Me thod High Flow Nasal C annula 10/30/24 01:51 Oxygen Flow Rate 8 10/30/24 01:51 MDM - URI/Sore Throat Medical Decision Making Patient presented with shortness of breath, she has been dealing with symptoms for a few weeks now, recently treated with amoxicillin for an upper respiratory infection. She arrived hypoxic with triage, 85 on room air and by the time she got back into the room was in the low 70s. Immediately was placed on 10 L nonrebreather. Wheezes at the bases on exam, overall did not appear fluid overloaded. She had no comorbid conditions other than obesity, no history of COPD and she is a non-smoker. No cardiac history. Chest x-ray was negative, D-dimer positive so CTA was ordered but ruled out pulmonary embolism, and streaky opacities in the lung bases that were nonspecific overall. No significant elevation of the white count, lactic minimally elevated to 2.6, likely from tissue hypoperfusion. ABG appeared unremarkable. Metabolic panel was normal. Currently still awaiting respiratory panel, however with her requiring oxygen and no history of oxygen, I spoke to hospitalist, Dr. Caballero, who agrees accept the patient to the ICU. I favor viral illness at this time, likely COVID but this panel still pending. Dr. Norman putting in admit orders. This patient was originally seen by Mr. Erwin PA-C. I agree with his history, evaluation, and management. Lab Data 10/29/24 23:14 10/29/24 23:14 Radiology Impressions Chest X-Ray 10/29/24 23:24 IMPRESSION: No definite acute infiltrate or effusion. Chest CTA 10/29/24 23:48 IMPRESSION: No definitive radiographic evidence of pulmonary embolism. Aortic atherosclerosis. Patchy streaky opacities in the lung bases, nonspecific, concerning for atelectasis with infection not totally excluded. Elevated right hemidiaphragm. Laboratory Results WBC 11.45 10^3/uL (3.29-11.43) H 10/29/24 23:14 RBC 4.75 10^6/uL (3.85-5.65) 10/29/24 23:14 Hgb 14.80 g/dL (11.27-16.99) 10/29/24 23:14 Hct 44.4 % (36-47) 10/29/24 23:14 MCV 93.5 fl (85-98) 10/29/24 23:14 MCH 31.2 pg (27-33) 10/29/24 23:14 MCHC 33.3 g/dL (30-55) 10/29/24 23:14 RDW 12.3 % (12.1-15.1) 10/29/24 23:14 Plt Count 280 10^3/cmm (157-399) 10/29/24 23:14 MPV 10.5 fL (7.4-10.4) H 10/29/24 23:14 Neut % (Auto) 73.9 % 10/29/24 23:14 Lymph % (Auto) 17.8 % 10/29/24 23:14 Logan % (Auto) 5.2 % 10/29/24 23:14 Eos % (Auto) 2.5 % 10/29/24 23:14 Baso % (Auto) 0.3 % 10/29/24 23:14 Neut # (Auto) 8.46 10^3/uL (1.8-7.7) H 10/29/24 23:14 Lymph # (Auto) 2.0 10^3/uL (0.8-4.8) 10/29/24 23:14 Logan # (Auto) 0.6 10^3/uL (0.2-0.9) 10/29/24 23:14 Eos # (Auto) 0.3 10^3/uL (0.0-0.8) 10/29/24 23:14 Baso # (Auto) 0.0 10^3/uL (0.0-0.1) 10/29/24 23:14 Nucleated RBC % (auto) 0 % 10/29/24 23:14 Nucleated RBCs # 0.0 /100WBC 10/29/24 23:14 Haptoglobin 190.0 mg/L (30-200) 10/30/24 01:22 D-Dimer 0.73 ug/mLFEU (0-0.59) H 10/29/24 23:14 Specimen Type Arterial 10/29/24 12:09 Sample Site Radial, right 10/29/24 12:09 ABG pH 7.39 (7.35-7.45) 10/29/24 12:09 ABG pCO2 42.4 mmHg (35-45) 10/29/24 12:09 ABG pO2 76.1 mmHg (80.0-100.0) L 10/29/24 12:09 ABG PO2/FiO2 Ratio 84 10/29/24 12:09 ABG HCO3 25.7 mmol/L (22-26) 10/29/24 12:09 ABG O2 Saturation 95.9 10/29/24 12:09 ABG Base Excess 0.6 mmol/L (-2.0-2.0) 10/29/24 12:09 Fredy Test Pos 10/29/24 12:09 A-a O2 Gradient 66.7 mmHg (5-10) H 10/29/24 12:09 Hematocrit 43.5 % (37-47) 10/29/24 12:09 Hgb O2 Saturation 93.9 % (95-100) L 10/29/24 12:09 Carboxyhemoglobin 1.0 %THgb (0.4-20.1) 10/29/24 12:09 Methemoglobin 1.0 % (0.4-1.5) 10/29/24 12:09 Total Hemoglobin 14.2 g/dL (12-16) 10/29/24 12:09 Sodium 144.0 mmol/L (131-143) H 10/29/24 12:09 Potassium 3.3 mmol/L (3.5-5.0) L 10/29/24 12:09 Glucose 174.0 mg/dL (70-115) H 10/29/24 12:09 Ionized Calcium 1.2 mmol/L (1.1-1.4) 10/29/24 12:09 O2 Delivery Device Nrb 10/29/24 12:09 O2 Liters/Min 10.0 % 10/29/24 12:09 FiO2 90.0 % 10/29/24 12:09 Adobe Cq Developer ID [email or web address] 10/29/24 12:09 Sodium 140 mmol/L (136-145) 10/29/24 23:14 Potassium 3.5 mmol/L (3.5-5.1) 10/29/24 23:14 Chloride 101 mmol/L (98-107) 10/29/24 23:14 Carbon Dioxide 26 mmol/L (22-29) 10/29/24 23:14 Anion Gap 16.5 (5-19) 10/29/24 23:14 BUN 14 mg/dL (8-23) 10/29/24 23:14 Creatinine 0.8 mg/dL (0.5-0.9) 10/29/24 23:14 GFR Calculation Not Reportable 10/29/24 23:14 Glucose 146 mg/dL (65-115) H 10/29/24 23:14 Estimat Average Glucose 137 10/29/24 23:14 Hemoglobin A1c 6.4 % (4.0-6.0) H 10/29/24 23:14 Calculated Osmolality 293 mOsm/kg (285-295) 10/29/24 23:14 Lactic Acid 2.6 mmol/L (0.5-2.2) H 10/29/24 23:14 Lactic Acid (Sepsis) 2.1 mmol/L (0.5-2.2) 10/30/24 02:02 Calcium 9.6 mg/dL (8.5-10.5) 10/29/24 23:14 Total Bilirubin 0.6 mg/dL (0.15-1.2) 10/29/24 23:14 AST 24 U/L (0-32) 10/29/24 23:14 ALT 13 U/L (0-33) 10/29/24 23:14 Alkaline Phosphatase 101 U/L (35-105) 10/29/24 23:14 Lactate Dehydrogenase 208 U/L (135-214) 10/30/24 01:22 Troponin T Baseline 10 ng/L (0-10) 10/29/24 23:14 Troponin T 120 Minute 9.85 ng/L (0-10) 10/30/24 01:22 Delta Troponin T -0.15 ABS# (0-10) L 10/30/24 01:22 NT-Pro-B Natriuret Pep 145 pg/mL (0-125) H 10/29/24 23:14 Total Protein 7.1 g/dL (6.6-8.7) 10/29/24 23:14 Albumin 4.2 g/dL (3.5-5.2) 10/29/24 23:14 Globulin 2.9 g/dL (1.3-4.6) 10/29/24 23:14 Procalcitonin 0.22 ng/mL (0-0.5) 10/29/24 23:14 Urine Color Yellow (Yellow) 10/30/24 01:00 Urine Appearance Clear (CLEAR) 10/30/24 01:00 Urine pH 5.0 (5-7) 10/30/24 01:00 Ur Specific Woodlyn 1.025 (1.005-1.030) 10/30/24 01:00 Urine Protein Trace (Negative) A 10/30/24 01:00 Urine Glucose (UA) Negative (Normal) 10/30/24 01:00 Urine Ketones Negative (Negative) 10/30/24 01:00 Urine Blood Negative (Negative) 10/30/24 01:00 Urine Nitrate Negative (Negative) 10/30/24 01:00 Urine Bilirubin Negative (Negative) 10/30/24 01:00 Urine Urobilinogen 1.0 mg/dL (Negative) 10/30/24 01:00 Ur Leukocyte Esterase 1+ (Negative) A 10/30/24 01:00 Urine RBC 0-2 /hpf (0-2) 10/30/24 01:00 Urine WBC 0-5 /hpf (0-5) 10/30/24 01:00 Ur Squamous Epith Cells 0-5 /hpf (0-5) 10/30/24 01:00 Amorphous Sediment Not Reportable 10/30/24 01:00 Urine Bacteria None seen /hpf (NONE) 10/30/24 01:00 Hyaline Casts 3.71 /lpf 10/30/24 01:00 Adenovirus (PCR) Not detected (NOT DETECT) 10/29/24 23:35 C. pneumoniae DNA (PCR) Not detected (NOT DETECT) 10/29/24 23:35 Coronavirus 229E (PCR) Not detected (NOT DETECT) 10/29/24 23:35 Human Metapneumovir PCR Not detected (NOT DETECT) 10/29/24 23:35 Influenza A (H1) PCR Not detected (NOT DETECT) 10/29/24 23:35 Influ A (H1/09) PCR Not detected (NOT DETECT) 10/29/24 23:35 Influenza A (H3) PCR Not detected (NOT DETECT) 10/29/24 23:35 Influenza Type A (PCR) Not detected (NOT DETECT) 10/29/24 23:35 Influenza Type B (PCR) Not detected (NOT DETECT) 10/29/24 23:35 M. pneumoniae (PCR) Not detected (NOT DETECT) 10/29/24 23:35 Parainfluenza 1 (PCR) Not detected (NOT DETECT) 10/29/24 23:35 Parainfluenza 2 (PCR) Not detected (NOT DETECT) 10/29/24 23:35 Parainfluenza 3 (PCR) Not detected (NOT DETECT) 10/29/24 23:35 Parainfluenza 4 (PCR) Not detected (NOT DETECT) 10/29/24 23:35 RSV Type A (PCR) Not detected (NOT DETECT) 10/29/24 23:35 RSV Type B (PCR) Not detected (NOT DETECT) 10/29/24 23:35 Entero/Rhino (PCR) Not detected (NOT DETECT) 10/29/24 23:35 SARS-CoV-2 (PCR) Not detected (NOT DETECT) 10/29/24 23:35 Discharge Plan Discharge Patient Disposition: Admitted As Inpatient Admit Provider: Herrera Caballero Clinical Impression: Acute hypoxic respiratory failure Condition: Stable Coding Level of Care Code ED Enamel Burner for Rajat Botello
[2024-10-30 00:21] LABS: ABG PCO2 42.4 mmHg (35-45); ABG PH Result 7.39 (7.35-7.45); Alveolar-Arterial Oxygen Gradi 66.7 mmHg (5-10); Arterial Blood Gas Hematocrit 43.5 % (37-47); Blood Gas Allen Test Pos; Blood Gas LPM 10.0 %; Blood Gas Operator Identificat gerca; Blood Gas Sample Site Radial, right; Blood Gas Sample Type Arterial; Carboxyhemoglobin 1.0 %THgb (0.4-20.1); Glucose Level-ABG 174.0 mg/dL (70-115); HCO3 ABG 25.7 mmol/L (22-26); Ionized Calcium Level - ABG 1.2 mmol/L (1.1-1.4); Methemoglobin 1.0 % (0.4-1.5); Oxygen Saturation ABG 95.9; PO2 ABG 76.1 mmHg (80.0-100.0); PO2 FiO2 Ratio Arterial Blood 84; Potassium Level - ABG 3.3 mmol/L (3.5-5.0); Sodium Level - ABG 144.0 mmol/L (131-143)
[2024-10-30] MEDS: iohexol 350 mg/mL 500 mL Btl (per mL) IV (00:45)
[2024-10-30 01:11] LABS: Glucose Urine UA Negative (Normal); Nitrate Urine Negative (Negative); Specific Gravity, Urine 1.025 (1.005-1.030)
[2024-10-30 01:16] LABS: Add Urine Microscopic? YES
[2024-10-30] MEDS: cefTRIAXone 1,000 mg SDV 1000 MG IVP (01:24)
--- NOTE | 2024-10-30 01:24 | ECG_ITS ---
[employer] Test Date: 2024-10-30 Pat Name: Deborah Nuñez Department: Room: [facility] Gender: Female [employer]: : 1950 Requested By: Esvin Cameron Order Number: [id number] Reading MD: GEETHA LUGO Measurements Intervals Hawks Rate: 100 P: 56 LA: 168 QRS: -3 QRSD: 77 T: 51 QT: 354 QTc: 457 Interpretive Statements SINUS TACHYCARDIA NONSPECIFIC ST & T-WAVE ABNORMALITY ABNORMAL RHYTHM ECG Compared to ECG 10/30/2024 04:57:57 No significant changes Electronically Signed On 11-01-2024 20:09:34 CDT by GEETHA LUGO [email or web address]
[2024-10-30] MEDS: methylPREDNISolone sod succ 125 mg/2 mL INJ IVP (01:28)
--- NOTE | 2024-10-30 01:56 | USCV_ITS ---
Deborah Nuñez Age: 73 Gender: F : 1950 Exam Date: 10/30/2024 09:29 Ordering Phys: Herrera Caballero MD Technologist: Dany Sebastian Exam Location: [facility] [place] Indication: sob BP: 159 / 81 HR: 105 Rhythm: Sinus Technical Quality: Adequate MEASUREMENTS (Male / Female) Normal Values 2D ECHO LVOT Diameter 2.0 cm LV Ejection Fraction MOD 4C 77.9 % LV Ejection Fraction MOD 2C 74.9 % LV Ejection Fraction 2C AL 76.9 % LA Diameter 3.6 cm RA Systolic Volume 4C AL 19.9 ml RA Systolic Volume 4C MOD 20.7 ml LA Sys Volume AL 31.5 cm cubed LA Sys Volume Index AL 13.2 cm cubed/m squared Aorta at Sinotubular Diameter 1.9 cm IVC Diameter 1.8 cm DOPPLER AV Peak Velocity 208.0 cm/s LVOT Peak Velocity 195.0 cm/s AV Area Cont Eq vti 2.4 cm squared AV Area Cont Eq pk 2.9 cm squared MV Peak Velocity 137.0 cm/s MV Area PHT 5.6 cm squared Mitral E to A Ratio 0.7 TV Peak Velocity 227.0 cm/s TR Peak Velocity 303.0 cm/s TR Peak Gradient 36.7 mmHg TR Mean Velocity 268.0 cm/s TR Mean Gradient 29.6 mmHg TR Velocity Time Integral 69.2 cm PV Peak Velocity 142.0 cm/s RV Ejection Time 0.2 s FINDINGS Left Ventricle Normal left ventricular size, systolic function and wall thickness, with no regional wall motion abnormalities. Left ventricular ejection fraction is estimated at 75 %. Grade I/IV diastolic dysfunction (abnormal relaxation filling pattern), normal to mildly elevated filling pressures. Right Ventricle The right ventricle is normal in size and function. Right Atrium The right atrium is normal in size. Left Atrium The left atrium is normal in size. Mitral Valve Structurally normal mitral valve without significant stenosis or prolapse. There is no mitral regurgitation. Aortic Valve Structurally normal aortic valve without significant sclerosis or stenosis. There is no aortic regurgitation. Tricuspid Valve Structurally normal tricuspid valve without significant stenosis or regurgitation. Pulmonary artery systolic pressure is normal. Pulmonic Valve Structurally normal pulmonic valve without significant stenosis. There is no pulmonic regurgitation. Pericardium Normal pericardium without effusion. Aorta Normal ascending aorta dimension. IVC The inferior vena cava appears normal. CONCLUSIONS Normal left ventricular size, systolic function and wall thickness, with no regional wall motion abnormalities. Left ventricular ejection fraction is estimated at 75 %. Grade I/IV diastolic dysfunction (abnormal relaxation filling pattern), normal to mildly elevated filling pressures. No significant valve abnormalities. There is no pericardial effusion. Right atrial pressure is around 5 mm of mercury. Evangelista Martin MD (Electronically Signed) Final Date: 30 October 2024 17:05 S
[2024-10-30 01:58] LABS: Troponin 5 2HR 9.85 ng/L (0-10); Troponin 5 2HR Delta -0.15 ABS# (0-10)
--- NOTE | 2024-10-30 02:03 | PM.HP ---
Providers/Chief Complaint Primary Care Provider: Giovany Thompson MD Chief Complaint: SOB History of Present Illness Deborah Nuñez is a 73 year old female with a past medical history of hypothyroidism, GERD, hyperlipidemia, who presents to [facility] due to 2-week history of fatigue, malaise, fevers, cough, shortness of breath, pleurisy. Currently patient is alert oriented x 3, following all commands, she is on 10 L, she is resting comfortably but with speaking with her, minimal exertion, she does develop tachypnea, shortness of breath, nasal flaring, intercostal retractions, she denies any travel, no known exposures, no calf pain, no hemoptysis, [place], no history of TB, no history of toxic exposures, no history of interstitial lung disease, no history of COPD, no smoking, she has been experiencing increased shortness of breath, wheezing, coughing, does report orthopnea, does report subjective fevers, chills, does report diarrhea, Review of Systems Card: Reports: dyspnea on exertion; Denies: chest pain Resp: Reports: dyspnea, productive cough and wheezing GI: Denies: abdominal pain or nausea Medications/Allergies Home Medications ?Medication ?Instructions ?Recorded ?Confirmed ?Last Taken ?Type levothyroxine 100 mcg capsule 100 mcg PO DAILY 01/23/21 09/21/24 Unknown History omeprazole 20 mg capsule,delayed 20 mg PO DAILY 01/23/21 09/21/24 Unknown History release sertraline 50 mg tablet 50 mg PO DAILY 01/23/21 09/21/24 Unknown History simvastatin 40 mg tablet 40 mg PO DAILY 01/23/21 09/21/24 Unknown History hydrocodone 5 mg-acetaminophen 325 1 tab PO Q8H PRN 01/28/22 09/21/24 Unknown History mg tablet ibuprofen 200 mg tablet 200 mg PO Q6H PRN 01/28/22 09/21/24 Unknown History tizanidine 4 mg tablet 4 mg PO BID PRN muscle spasticity 09/10/23 09/21/24 Unknown Rx #60 tabs Allergies Allergy/AdvReac Type Severity Reaction Status Date / Time No Known Allergies Allergy Verified 09/21/24 09:31 PFSH Acute PFSH: Medical History Closed fracture of proximal phalanx of toe of left foot Second toe Closed fracture of proximal phalanx of toe of left foot Third toe Closed fracture of proximal phalanx of toe of left foot Fourth toe Surgical History (Updated 10/30/24 @ 02:07 by Herrera Caballero MD) History of left hip replacement Hx of appendectomy Hx of cholecystectomy Family History Other Cancer Social History Smoking and tobacco/nicotine status: never used tobacco/nicotine Alcohol intake: never Substance/Drug Use: never Vitals/I&O/Wt Last Vital Signs Temp 97.8 F 10/29/24 22:57 Pulse 91 10/30/24 01:51 Resp 18 10/30/24 01:51 BP 160/93 10/30/24 01:14 Pulse Ox 99 10/30/24 01:51 O2 Del Method High Flow Nasal Cannula 10/30/24 01:51 O2 Flow Rate 8 10/30/24 01:51 Weight last 48 hrs Weight 113.398 kg Physical Exam Const: COMMON NORMALS: no acute distress and patient oriented x3 HENMT: COMMON NORMALS: normocephalic HEAD & SCALP: normocephalic Eye: COMMON NORMALS: Equal, round and reactive pupils present and EOMs intact bilaterally Lymph: LYMPHATIC: no lymphadenopathy noted Resp: COMMON NORMALS: normal respiratory effort, No retractions and No use of accessory muscles AUSCULTATION: crackles and wheezes Cardio: COMMON NORMALS: regular rate, regular rhythm, S1 normal heart sound present and S2 normal heart sound present RATE: regular rate RHYTHM: regular rhythm HEART SOUNDS: S1 normal heart sound present and S2 normal heart sound present GI: COMMON NORMALS: Normal to inspection, nondistended, normoactive bowel sounds present, Soft to palpation and non-tender Extremity: COMMON NORMALS: no calf tenderness and no pedal edema Neuro: COMMON NORMALS: patient oriented x3, CN's II-XII intact bilaterally and moves all extremities Psych: COMMON NORMALS: mental status grossly normal Data 10/29/24 23:14 10/29/24 23:14 Micro: Microbiology 10/30/24 00:23 Blood Culture - Preliminary Blood SPECIMEN COLLECTED 08/09/25 23:45 Blood Culture - Preliminary Blood SPECIMEN COLLECTED A&P Assessment and plan 1. Acute hypoxic respiratory failure: 2. Pneumonia: 3. Sepsis: Plan: Acute hypoxic respiratory failure - Currently requiring 10 L - Secondary to pneumonia - Highly suspicious for viral infection in addition, respiratory viral pathogen panel pending CT/CT angio chest PE protcl [id number] IMPRESSION: No definitive radiographic evidence of pulmonary embolism. Aortic atherosclerosis. Patchy streaky opacities in the lung bases, nonspecific, concerning for atelectasis with infection not totally excluded. Elevated right hemidiaphragm. - Sepsis, sepsis features met given acute hypoxia, pneumonia, hypoxia, leukocytosis, elevated lactic acid Plan - Await respiratory viral panel - Solu-Medrol 40 mg IV every 8 hours - Rocephin - Azithromycin - DuoNeb - Budesonide - Sputum cultures, blood cultures -Cardiac echo - Full code - Lovenox for DVT prophylaxis PDMP PDMP Reviewed: Last Reviewed 10/30/24 01:57 by Herrera Caballero MD Attestations Medical Necessity Statement*: Patient requires hospitalization, inpatient, greater than 2 midnights for acute hypoxic respiratory failure, pneumonia Diagnoses Acute hypoxic respiratory failure J96.01 Pneumonia J18.9 Sepsis A41.9 Sepsis Event Note Evaluation Current stage of sepsis: sepsis Possible source: pulmonary Focused Exam Vital Signs Temp Pulse Resp BP Pulse Ox O2 Del Method O2 Flow Rate 10/30/24 01:51 91 18 99 High Flow Nasal Cannula 10/30/24 01:49 87 18 97 Nasal Cannula 10/30/24 01:14 93 18 160/93 98 High Flow Nasal Cannula 10/30/24 00:31 88 29 H 153/91 96 High Flow Nasal Cannula 10/30/24 00:00 87 29 H 140/71 93 Non-Rebreather 10/29/24 22:57 97.8 F 85 22 H 109/70 85 L Room Air Respiratory exam: Present wheezes Capillary refill: < 3 Seconds Peripheral pulse strength: 2+ Slightly Diminished Peripheral pulse location: Radial Skin exam: normal turgor Date exam was performed: 10/30/24 Time exam was performed: 02:10
[2024-10-30 02:18] LABS: Coronavirus 229E,HKU1,NL63,OC4 Not Detected (NOT DETECT); Parainfluenza Virus Type 1 Not Detected (NOT DETECT); Parainfluenza Virus Type 2 Not Detected (NOT DETECT); Parainfluenza Virus Type 3 Not Detected (NOT DETECT); Parainfluenza Virus Type 4 Not Detected (NOT DETECT); SARS-COV-2 Not Detected (NOT DETECT)
[2024-10-30 02:26] LABS: Estmated Average Glucose 137; Hemoglobin A1C 6.4 % (4.0-6.0)
[2024-10-30 02:31] LABS: Lactic Acid level (Lactate) 2.1 mmol/L (0.5-2.2)
--- NOTE | 2024-10-30 03:57 | PC.NURSE ---
Patient arrived from ED at 0331 to ICU 5. Alert and oriented. Oriented to room, call light and answered any question.
[2024-10-30 04:05] LABS: Thyroid Stimulating Hormone 8.61 uIU/mL (0.27-4.20)
[2024-10-30] MEDS: pantoprazole 40 mg SDV IVP (04:22)
--- NOTE | 2024-10-30 05:24 | ECG_ITS ---
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
[2024-10-30 05:47] LABS: Troponin 5 6HR 8.68 ng/L (0-10)
[2024-10-30 05:57] LABS: Troponin 5 6HR Delta -1.32 ng/L (0-12)
--- NOTE | 2024-10-30 07:39 | PC.NURSE ---
awake up to [facility] this am noted blood sugar high, no c/o pain discomfort remains on 02
--- NOTE | 2024-10-30 20:01 | PC.NURSE ---
Provider notified of patients request to resume home PRN Hydrocodone 5-325. Provider approved and gave orders to discontinue PRN morphine. Orders placed. See MAR
[2024-10-30] MEDS: HYDROcodone-acetaminophen 5-325 mg Tablet 1 TAB PO (20:56)
[2024-10-31] VITALS (59 sets, daily range): BP systolic 113–182; BP diastolic 57–103; PULSE 78–108; RESP 12–28; TEMP 36.4–36.6; O2SAT 90–99
[2024-10-31] MEDS: cefTRIAXone 1,000 mg SDV 1000 MG IVP (01:51)
[2024-10-31] MEDS: pantoprazole 40 mg SDV IVP (04:17)
[2024-10-31 05:36] LABS: Hematocrit 36.9 % (36-47); Hemoglobin 12.10 g/dL (11.27-16.99); Mean Corpuscular HGB Conc 32.8 g/dL (30-55); Mean Corpuscular Hemoglobin 31.2 pg (27-33); Mean Corpuscular Volume 95.1 fl (85-98); Nucleated Red Blood Cells % 0 %; Platelet Count 233 10^3/cmm (157-399); Red Blood Count 3.88 10^6/uL (3.85-5.65); White Blood Count 12.57 10^3/uL (3.29-11.43)
[2024-10-31 06:02] LABS: Alanine Aminotransferase 10 U/L (0-33); Albumin Level 3.9 g/dL (3.5-5.2); Alkaline Phosphatase 91 U/L (35-105); Anion Gap 15.1 (5-19); Aspartate Amino Transferase 16 U/L (0-32); Blood Urea Nitrogen 17 mg/dL (8-23); Calcium 9.6 mg/dL (8.5-10.5); Carbon Dioxide 26 mmol/L (22-29); Chloride 103 mmol/L (98-107); Creatinine Clr Calc Pharmacy 85.5761; Globulin 3.1 g/dL (1.3-4.6); Glucose 162 mg/dL (65-115); Osmolality Calculated 297 mOsm/kg (285-295); Potassium 3.1 mmol/L (3.5-5.1); Sodium 141 mmol/L (136-145); Total Protein 7.0 g/dL (6.6-8.7)
[2024-10-31] MEDS: HYDROcodone-acetaminophen 5-325 mg Tablet 1 TAB PO (09:55)
--- NOTE | 2024-10-31 14:07 | PM.PN ---
Subjective Subjective: Patient seen in the morning, lying on the chair comfortably with 3 L oxygen supplementation through nasal cannula. Able to speak in full sentences without any distress, oriented to time place and person Vitals/I&O/Wt Last Vital Signs Temp 97.6 F 10/31/24 00:00 Pulse 104 H 10/31/24 12:30 Resp 28 H 10/31/24 12:30 BP 168/98 10/31/24 13:00 Pulse Ox 93 10/31/24 12:30 O2 Del Method High Flow Nasal Cannula 10/31/24 11:40 O2 Flow Rate 4 10/31/24 11:40 10/30/24 10/31/24 10/31/24 22:59 06:59 14:59 Intake Total 200 / 600 250 / 850 360 / 360 Output Total 650 / 900 Balance 200 / 350 -400 / -50 360 / 360 Weight last 48 hrs Weight 113.9 kg Weight 113.389 kg Weight 113.398 kg Weight 113.398 kg Physical Exam Narrative: General: Alert oriented x3, patient seen lying comfortably on the chair with 2 to 3 L nasal cannula oxygen supplementation HEENT: Normocephalic, atraumatic, EOMI, breathing without any distress with on and off dry cough Cardio: Regular rate rhythm, normal S1-S2, no murmurs rubs gallops, JVD normal Respiratory: Coarse to fine crepitations on the right side from basal to mid zone, bilateral equal air entry, no wheezes stridor or any other added sounds GI: Abdomen soft, nontender, nondistended, normoactive bowel sounds present all 4 quadrants, Neuro: Cranial nerves II to XII intact, strength 5/5, sensation 5/5, no gross neurological deficit Behavior: Appropriate and cooperative Extremities: Pulses 2+, no edema, no cyanosis Skin: Visible skin intact, no rashes Data 10/31/24 04:26 10/31/24 04:26 Micro: Microbiology 10/30/24 22:22 Gram Stain - Final Sputum - Expectorated Sputum 10/30/24 00:00 Bacterial Antigens - Final Urine,Voided 10/30/24 00:23 Blood Culture - Preliminary Blood NEGATIVE TO DATE 10/29/24 23:45 Blood Culture - Preliminary Blood NEGATIVE TO DATE A&P Assessment and plan 1. Acute hypoxic respiratory failure: 2. Pneumonia: 3. Sepsis: Plan: Acute hypoxic respiratory failure likely viral pneumonia - Currently getting better and weaned down from 10 L nasal cannula to 2 to 3 L/min nasal cannula supplementation likely viral pneumonia however pending respiratory viral panels report. Currently no organism found up to date to follow the rest of the panel - Patient stable to be downgraded to MedSurg - CTA was done and ruled out pulmonary embolism however showed patchy streak opacities in the lung bases and elevated hemidiaphragm with possible atelectasis and consideration of infection (for detailed report referred to the chest CTA) - Sepsis: Resolved - Continue prednisone 40 mg daily for minimum 3 days and reassess, the patient was initially on high-dose steroids however considering her pneumonia which was not severe requiring intubation or high flow nasal cannula, according to guidelines the steroids were held and patient was monitored. The patient improved significantly. No need of steroids at the moment since the patient did not have any COPD or asthma exacerbation. -Continue on ceftriaxone and azithromycin (azithromycin for maximum 3 days) - DuoNeb - Budesonide - Sputum cultures, blood cultures negative to date -Cardiac echo showed normal left ventricular size and ejection fraction of 75% with grade 1/4 diastolic dysfunction and mildly elevated filling pressures - Full code - Lovenox for DVT prophylaxis PDMP PDMP Reviewed: Not Reviewed Attestations Medical Necessity Statement*: Deborah Nuñez's hospital stay will require greater than 2 midnights for management of her acute hypoxemic respiratory failure currently stabilizing likely secondary to viral pneumonia and sepsis resolved Time Spent in Patient Care: Greater than 35 minutes (>than 50% of time spent in counselling and/or direct pt care on unit). Critical Care Time: Critical Care Time (min): 40 Other Attestations: Patient condition has been discussed at length with the patient/family, I have independently reviewed the chart labs imaging and diagnostics and EKG. I have discussed the goals of care and code status with the patient/family/NOK/legal solar sales representative, and documented accordingly. The patient/family has been informed about the current condition and further plan of care. Agreed with the plan of care and understood without any language barrier. This documentation was created by [employer] bricklayer paving brick software. Every effort was made to ensure accuracy of bricklayer paving brick. Any obvious errors or omissions should be clarified with the author of the document. Coding Level of Care Code Acute Code for [facility] Fwd Diagnoses Acute hypoxic respiratory failure J96.01 Pneumonia J18.9 Sepsis A41.9
[2024-10-31] MEDS: pantoprazole 40 mg SDV 60 MG IVP (14:09)
[2024-11-01] VITALS (10 sets, daily range): BP systolic 139–167; BP diastolic 71–93; PULSE 78–102; RESP 16–18; TEMP 36.4–37.1; O2SAT 90–93
[2024-11-01] MEDS: cefTRIAXone 1,000 mg SDV 1000 MG IVP (01:25)
[2024-11-01 04:53] LABS: Hematocrit 38.2 % (36-47); Hemoglobin 12.40 g/dL (11.27-16.99); Mean Corpuscular HGB Conc 32.5 g/dL (30-55); Mean Corpuscular Hemoglobin 31.2 pg (27-33); Mean Corpuscular Volume 96.0 fl (85-98); Nucleated Red Blood Cells % 0 %; Platelet Count 223 10^3/cmm (157-399); Red Blood Count 3.98 10^6/uL (3.85-5.65); White Blood Count 11.51 10^3/uL (3.29-11.43)
[2024-11-01 05:11] LABS: Alanine Aminotransferase 10 U/L (0-33); Albumin Level 3.7 g/dL (3.5-5.2); Alkaline Phosphatase 77 U/L (35-105); Aspartate Amino Transferase 19 U/L (0-32); Blood Urea Nitrogen 14 mg/dL (8-23); Calcium 9.6 mg/dL (8.5-10.5); Carbon Dioxide 26 mmol/L (22-29); Chloride 104 mmol/L (98-107); Creatinine Clr Calc Pharmacy 85.5761; Globulin 3.0 g/dL (1.3-4.6); Glucose 115 mg/dL (65-115); Osmolality Calculated 289 mOsm/kg (285-295); Sodium 139 mmol/L (136-145); Total Protein 6.7 g/dL (6.6-8.7)
[2024-11-01 05:30] LABS: Anion Gap 13.4 (5-19); Potassium 4.4 mmol/L (3.5-5.1)
--- NOTE | 2024-11-01 15:45 | PM.DCS ---
Discharge Providers Date of Admission: 10/30/24 02:44 Date of Discharge: November 01, 2024 Attending Provider at Admission: Herrera Caballero MD Attending Provider at Discharge: Katerine Craig MD Primary Care Provider: Giovany Thompson MD Diagnoses at Discharge Discharge Diagnosis 1. Acute hypoxic respiratory failure: 2. Pneumonia: 3. Sepsis: Reason for Visit Reason for Visit: SOB Hospital Course Hospital Course Deborah Nuñez is a 73 year old female with a past medical history of hypothyroidism, GERD, hyperlipidemia, who presents to [facility] due to 2-week history of fatigue, malaise, fevers, cough, shortness of breath, pleurisy. Currently patient is alert oriented x 3, following all commands, she is on 10 L, she is resting comfortably but with speaking with her, minimal exertion, she does develop tachypnea, shortness of breath, nasal flaring, intercostal retractions, she denies any travel, no known exposures, no calf pain, no hemoptysis, [place], no history of TB, no history of toxic exposures, no history of interstitial lung disease, no history of COPD, no smoking, she has been experiencing increased shortness of breath, wheezing, coughing, does report orthopnea, does report subjective fevers, chills, does report diarrhea, Patient was treated for pneumonia and had been on azithromycin and ceftriaxone. Patient was transferred from ICU to medical floor last night doing okay on room air with no complaints. However patient is having cough loosening within the chest cavity trying to cough things up. Mucinex was initiated today. Patient looks good to go home to follow-up with oral antibiotics outpatient. Azithromycin as was continued for 5 days and antibiotics Augmentin was continued for 10 days twice daily. Physical Exam Narrative: General The patient is in no apparent distress HEENT normocephalic atraumatic neck neck is supple cardiovascular heart is regular lungs are pretty much clear abdomen soft nontender nondistended unremarkable extremities are intact no edema has good pulses neurology has no focality lab studies lab studies reviewed and noted. Discharge Data Studies Completed and Pending Completed Studies During Hospitalization Category Date Time Status CT PE [CT angio chest PE protcl 30005] Stat Cat Scan 10/29/24 23:48 Completed XR chest 1V portable [id number] Stat Exams 10/29/24 23:24 Completed CV. echo complete* [id number] Routine Ultrasound 10/30/24 01:56 Completed Pending at discharge Category Date Time Status 1-3 Beta D Glucan [Fungitell Glucan Assay (Blood)] Lab 10/30/24 05:12 Received Routine Blood Culture Stat Lab 10/29/24 23:45 Results MRSA PCR OZH (swab) Routine Lab 10/30/24 03:35 Ordered Sputum Culture and Gram Stain Stat Lab 10/30/24 22:22 Results Tick Panel Stat Lab 10/30/24 03:13 Results Radiology Impressions Chest X-Ray 10/29/24 23:24 IMPRESSION: No definite acute infiltrate or effusion. Chest CTA 10/29/24 23:48 IMPRESSION: No definitive radiographic evidence of pulmonary embolism. Aortic atherosclerosis. Patchy streaky opacities in the lung bases, nonspecific, concerning for atelectasis with infection not totally excluded. Elevated right hemidiaphragm. Laboratory Results WBC 11.51 10^3/uL (3.29-11.43) H 11/01/24 04:18 RBC 3.98 10^6/uL (3.85-5.65) 11/01/24 04:18 Hgb 12.40 g/dL (11.27-16.99) 11/01/24 04:18 Hct 38.2 % (36-47) 11/01/24 04:18 MCV 96.0 fl (85-98) 11/01/24 04:18 MCH 31.2 pg (27-33) 11/01/24 04:18 MCHC 32.5 g/dL (30-55) 11/01/24 04:18 RDW 12.6 % (12.1-15.1) 11/01/24 04:18 Plt Count 223 10^3/cmm (157-399) 11/01/24 04:18 MPV 10.4 fL (7.4-10.4) 11/01/24 04:18 Neut % (Auto) 82.9 % 11/01/24 04:18 Lymph % (Auto) 9.6 % 11/01/24 04:18 [place] % (Auto) 6.6 % 11/01/24 04:18 Eos % (Auto) 0.1 % 11/01/24 04:18 Baso % (Auto) 0.2 % 11/01/24 04:18 Neut # (Auto) 9.54 10^3/uL (1.8-7.7) H 11/01/24 04:18 Lymph # (Auto) 1.1 10^3/uL (0.8-4.8) 11/01/24 04:18 [place] # (Auto) 0.8 10^3/uL (0.2-0.9) 11/01/24 04:18 Eos # (Auto) 0.0 10^3/uL (0.0-0.8) 11/01/24 04:18 Baso # (Auto) 0.0 10^3/uL (0.0-0.1) 11/01/24 04:18 Nucleated RBC % (auto) 0 % 11/01/24 04:18 Nucleated RBCs # 0.0 /100WBC 11/01/24 04:18 Haptoglobin 190.0 mg/L (30-200) 10/30/24 01:22 D-Dimer 0.73 ug/mLFEU (0-0.59) H 10/29/24 23:14 Specimen Type Arterial 10/29/24 12:09 Sample Site Radial, right 10/29/24 12:09 ABG pH 7.39 (7.35-7.45) 10/29/24 12:09 ABG pCO2 42.4 mmHg (35-45) 10/29/24 12:09 ABG pO2 76.1 mmHg (80.0-100.0) L 10/29/24 12:09 ABG PO2/FiO2 Ratio 84 10/29/24 12:09 ABG HCO3 25.7 mmol/L (22-26) 10/29/24 12:09 ABG O2 Saturation 95.9 10/29/24 12:09 ABG Base Excess 0.6 mmol/L (-2.0-2.0) 10/29/24 12:09 Fredy Test Pos 10/29/24 12:09 A-a O2 Gradient 66.7 mmHg (5-10) H 10/29/24 12:09 Hematocrit 43.5 % (37-47) 10/29/24 12:09 Hgb O2 Saturation 93.9 % (95-100) L 10/29/24 12:09 Carboxyhemoglobin 1.0 %THgb (0.4-20.1) 10/29/24 12:09 Methemoglobin 1.0 % (0.4-1.5) 10/29/24 12:09 Total Hemoglobin 14.2 g/dL (12-16) 10/29/24 12:09 Sodium 144.0 mmol/L (131-143) H 10/29/24 12:09 Potassium 3.3 mmol/L (3.5-5.0) L 10/29/24 12:09 Glucose 174.0 mg/dL (70-115) H 10/29/24 12:09 Ionized Calcium 1.2 mmol/L (1.1-1.4) 10/29/24 12:09 O2 Delivery Device Nrb 10/29/24 12:09 O2 Liters/Min 10.0 % 10/29/24 12:09 FiO2 90.0 % 10/29/24 12:09 [employer] ID [email or web address] 10/29/24 12:09 Sodium 139 mmol/L (136-145) 11/01/24 04:18 Potassium 4.4 mmol/L (3.5-5.1) 11/01/24 04:18 Chloride 104 mmol/L (98-107) 11/01/24 04:18 Carbon Dioxide 26 mmol/L (22-29) 11/01/24 04:18 Anion Gap 13.4 (5-19) 11/01/24 04:18 BUN 14 mg/dL (8-23) 11/01/24 04:18 Creatinine 0.7 mg/dL (0.5-0.9) 11/01/24 04:18 GFR Calculation Not Reportable 11/01/24 04:18 Glucose 115 mg/dL (65-115) 11/01/24 04:18 POC Glucose 116 mg/dL (70-110) H 11/01/24 10:56 Estimat Average Glucose 137 10/29/24 23:14 Hemoglobin A1c 6.4 % (4.0-6.0) H 10/29/24 23:14 Calculated Osmolality 289 mOsm/kg (285-295) 11/01/24 04:18 Lactic Acid 2.6 mmol/L (0.5-2.2) H 10/29/24 23:14 Lactic Acid (Sepsis) 2.1 mmol/L (0.5-2.2) 10/30/24 02:02 Calcium 9.6 mg/dL (8.5-10.5) 11/01/24 04:18 Total Bilirubin 0.3 mg/dL (0.15-1.2) 11/01/24 04:18 AST 19 U/L (0-32) 11/01/24 04:18 ALT 10 U/L (0-33) 11/01/24 04:18 Alkaline Phosphatase 77 U/L (35-105) 11/01/24 04:18 Lactate Dehydrogenase 208 U/L (135-214) 10/30/24 01:22 Troponin T Baseline 10 ng/L (0-10) 10/29/24 23:14 Troponin T 120 Minute 9.85 ng/L (0-10) 10/30/24 01:22 Delta Troponin T -0.15 ABS# (0-10) L 10/30/24 01:22 Troponin T Hi Sens 6Hr 8.68 ng/L (0-10) 10/30/24 05:12 Troponin T Hi Sens 6Hr Delta -1.32 ng/L (0-12) L 10/30/24 05:12 NT-Pro-B Natriuret Pep 145 pg/mL (0-125) H 10/29/24 23:14 Total Protein 6.7 g/dL (6.6-8.7) 11/01/24 04:18 Albumin 3.7 g/dL (3.5-5.2) 11/01/24 04:18 Globulin 3.0 g/dL (1.3-4.6) 11/01/24 04:18 Procalcitonin 0.22 ng/mL (0-0.5) 10/29/24 23:14 TSH 8.61 uIU/mL (0.27-4.20) H 10/30/24 01:22 Urine Color Yellow (Yellow) 10/30/24 01:00 Urine Appearance Clear (CLEAR) 10/30/24 01:00 Urine pH 5.0 (5-7) 10/30/24 01:00 Ur Specific Rupert 1.025 (1.005-1.030) 10/30/24 01:00 Urine Protein Trace (Negative) A 10/30/24 01:00 Urine Glucose (UA) Negative (Normal) 10/30/24 01:00 Urine Ketones Negative (Negative) 10/30/24 01:00 Urine Blood Negative (Negative) 10/30/24 01:00 Urine Nitrate Negative (Negative) 10/30/24 01:00 Urine Bilirubin Negative (Negative) 10/30/24 01:00 Urine Urobilinogen 1.0 mg/dL (Negative) 10/30/24 01:00 Ur Leukocyte Esterase 1+ (Negative) A 10/30/24 01:00 Urine RBC 0-2 /hpf (0-2) 10/30/24 01:00 Urine WBC 0-5 /hpf (0-5) 10/30/24 01:00 Ur Squamous Epith Cells 0-5 /hpf (0-5) 10/30/24 01:00 Amorphous Sediment Not Reportable 10/30/24 01:00 Urine Bacteria None seen /hpf (NONE) 10/30/24 01:00 Hyaline Casts 3.71 /lpf 10/30/24 01:00 Adenovirus (PCR) Not detected (NOT DETECT) 10/29/24 23:35 Lyme Ab (Western Blot) <0.90 index 10/30/24 03:13 C. pneumoniae DNA (PCR) Not detected (NOT DETECT) 10/29/24 23:35 Coronavirus 229E (PCR) Not detected (NOT DETECT) 10/29/24 23:35 Human Metapneumovir PCR Not detected (NOT DETECT) 10/29/24 23:35 Influenza A (H1) PCR Not detected (NOT DETECT) 10/29/24 23:35 Influ A (H1/09) PCR Not detected (NOT DETECT) 10/29/24 23:35 Influenza A (H3) PCR Not detected (NOT DETECT) 10/29/24 23:35 Influenza Type A (PCR) Not detected (NOT DETECT) 10/29/24 23:35 Influenza Type B (PCR) Not detected (NOT DETECT) 10/29/24 23:35 M. pneumoniae (PCR) Not detected (NOT DETECT) 10/29/24 23:35 Parainfluenza 1 (PCR) Not detected (NOT DETECT) 10/29/24 23:35 Parainfluenza 2 (PCR) Not detected (NOT DETECT) 10/29/24 23:35 Parainfluenza 3 (PCR) Not detected (NOT DETECT) 10/29/24 23:35 Parainfluenza 4 (PCR) Not detected (NOT DETECT) 10/29/24 23:35 RSV Type A (PCR) Not detected (NOT DETECT) 10/29/24 23:35 RSV Type B (PCR) Not detected (NOT DETECT) 10/29/24 23:35 Entero/Rhino (PCR) Not detected (NOT DETECT) 10/29/24 23:35 SARS-CoV-2 (PCR) Not detected (NOT DETECT) 10/29/24 23:35 Vitals Last Vital Signs Temp 98.7 F 11/01/24 15:21 Pulse 81 11/01/24 15:21 Resp 16 11/01/24 15:21 BP 145/81 11/01/24 15:21 Pulse Ox 93 11/01/24 15:21 O2 Del Method Room Air 11/01/24 12:00 O2 Flow Rate 3 10/31/24 23:47 Discharge Plan Discharge Patient Disposition: Home Condition: Stable Prescriptions: New ipratropium-albuterol 0.5 mg-3 mg(2.5 mg base)/3 mL Solution For Nebulization 3 ml inhalation Q4H.RESPIRATORY Qty: 90 0RF levothyroxine [Levoxyl] 100 mcg Tablet 100 mcg PO QAM Qty: 30 0RF guaifenesin [Mucinex] 600 mg Tablet Extended Release 12hr 600 mg PO BID@0500,1700 Qty: 10 0RF azithromycin 500 mg tablet 500 mg PO DAILY 5 Days Qty: 5 0RF amoxicillin-pot clavulanate [Augmentin] 500-125 mg tablet 1 tab PO BID Qty: 20 0RF Continued omeprazole 20 mg capsule,delayed release(DR/EC) 20 mg PO DAILY hydrocodone-acetaminophen 5-325 mg tablet 1 tab PO Q8H PRN (Reason: Pain) ibuprofen 200 mg tablet 200 mg PO Q6H PRN (Reason: Pain) tizanidine 4 mg tablet 4 mg PO BID PRN (Reason: muscle spasticity) Qty: 60 1RF atorvastatin 40 mg tablet 40 mg PO QPM fluticasone propionate 50 mcg/actuation spray,suspension 2 spray INTRANASAL DAILY PRN (Reason: allergies) nitrofurantoin monohyd/m-cryst 100 mg capsule 1 cap PO Q12H sertraline 100 mg tablet 100 mg PO QAM Qty: 30 0RF Discontinued levothyroxine [Synthroid] 125 mcg tablet 125 mcg PO DAILY Discharge Order = DC NOW: Discharge Order (Routine); Ordered 11/01/24 Ordered By: Katerine Craig Referrals: Giovany Thompson MD [Primary Care Provider, [facility]] - 11/07/24 11:50 am Patient Instructions: Levothyroxine (By mouth), Amoxicillin/Clavulanate Potassium (By mouth), Azithromycin (By mouth), Opioid Safety, Pneumonia Stoplight, Patient Portal & [facility]bah Instructions Discharge Attestations Time Spent in Discharge Care*: less than 30 min Quality Metrics Clinical Quality Measures [ No reported AMI, CVA or VTE this stay] Coding Level of Care Code 11224 Diagnoses Acute hypoxic respiratory failure J96.01 Pneumonia J18.9 Sepsis A41.9 Time Spent (min) 30
[2024-11-03 18:49] LABS: RMSF IGG NOT DETECTED; RMSF IGM NOT DETECTED
[2024-11-03 22:49] LABS: Fungitell 1-3-B Glucan Assay <31 pg/mL (<60); Interpretation Negative (Negative)
== END 2024-11-01 15:22 | disposition home or self-care (01) | DRG 871 ==
LOC: ER 10-30 02:17 → ICU 10-30 02:44 → MEDSURG 10-31 18:38
PROVIDERS: Student in an Organized Health Care Education/Training Program; Admitting Provider Family Medicine; Emergency Provider Physician Assistant; PCP Family Medicine; Visit Provider Internal Medicine
DX: A41.9 Sepsis, unspecified organism (principal); J12.9 Viral pneumonia, unspecified; J96.01 Acute respiratory failure with hypoxia; E03.9 Hypothyroidism, unspecified; K21.9 Gastro-esophageal reflux disease without esophagitis; E78.5 Hyperlipidemia, unspecified; Z79.891 Long term (current) use of opiate analgesic; Z96.642 Presence of left artificial hip joint
CPT/HCPCS: 36415; 36416; 36600; 71045; 71275; 80051; 80053; 81001; 82330; 82805; 82962; 83010; 83036; 83605; 83615; 83880; 84145; 84443; 84484; 85025; 85378; 86403; 86618; 86666; 86757; 87040; 87070; 87205; 87449; 87486; 87581; 87633; 93005; 93306; 94640; 94664; 96365; 96372; 96375; 99285; J0456; J0696; J1650; J1815; J2470; J2919; J7030; J7050; J7512; J7626; J9999